=== PATIENT | male | born 1950 | race Caucasian/White ===

== ENCOUNTER 2017-10-10 13:27 | Emergency (ER) | payer OTHER ==
[2017-10-10 13:44] VITALS: BP 155/83; BMI 28.1
[2017-10-10] MEDS ORDERED: SOLU-Medrol 125 MG VIAL IVP ONE (15:58)
[2017-10-10] MEDS ORDERED: DUONEB 0.5 MG/3 MG NEB ONE (15:58)
--- NOTE | 2017-10-10 16:09 | DR.URIAD ---
HPI - Time Seen Time seen: 15:58 - PCP Primary Care Physician: JETHRO TAPIA - HPI Comment HPI Comment: Patient is complaining of feeling weak with cough, congestion but denies fever, chills. SOB, chest pain, nausea or vomiting. states he has been taking over the counter medicines without improvement. states he is a patient of Dr. Rodriguez and he is taking medicine for blood pressure. He denies dizziness , nasuea or any recent trauma. Denies swelling of hands or legs. - Complaint Chief Complaint:: PT C/O NOT FEELING WELL FOR A WEAK AND FELLING WEAK AND COUGHING UP THICK YELLOW SPUTUM,, PT DENIES FEVER , CHILLS,,,,AND SOB, Self Treatment fo Chief Complaint: OTC COLD. - Reviewed Nurses Notes Reviewed: Yes - Source History Provided: Patient, Family Member - Mode of Arrival Mode of Arrival: Ambulatory - Timing Onset of Chief Complaint: 10/01/17 - Context Recent Treated Infections: URI History of Respiratory: None - Quality Quality of Cough: Nonproductive Rhinorrhea: Clear Shortness of Breath: none - Associated Signs and Symptoms Other Signs and Symptoms: Cough, Wheeze PMH - PMH Past Medical History: Yes Past Medical History: Hypertension Past Medical History Comment: CHOLESTEROL. Past Surgical History: No - Family History History of Family Medical Conditions: No - Social History Does patient currently use any type of tobacco product: No Have you used tobacco products in the last 12 months: No Type of Tobacco Use: None Does any household member use tobacco: No Alcohol Use: None Do you use any recreational Drugs:: No Lives With: Family Lives Where: Home - infectious screening In the last 2 months have you had wt loss of >10#?: NO Have you had fever, night sweats or hemotysis?: No Have you traveled outside the country in the last 6 months?: No Isolation: Standard ROS - Review of Systems Constitutional: No Symptoms Reported, Weakness. negative: See HPI, Chills, Diaphoresis, Fever, Malaise, Irritable, Fatigue, Loss of Appetite, Other Eyes: No Symptoms Reported. negative: See HPI, Eye Pain, Blurred Vision, Tearing, Discharge, Photophobia, Diplopia, Other ENTM: No Symptoms Reported, Nose Discharge, Nose Congestion. negative: See HPI , Ear Pain, Ear Discharge, Pulling on Ears, Hearing Loss, Nose Pain, Epistaxis, Mouth Pain, Mouth Swelling, Loose Teeth, Drooling, Throat Pain, Throat Swelling , Ear Foreign Body Respiratoy: No Symptoms Reported, Dry Cough, Wheezing. negative: See HPI, Productive Cough, Non-Productive Cough, Moist Cough, Hacking Cough, Barking Cough, Brassy Cough, Orthopnea, Short of Breath, Stridor, Hemoptysis, Other Cardiovascular: No Symptoms Reported. negative: See HPI, Chest Pain, Edema, Palpitations, Syncope, Cyanosis, Skin Mottling, Other Gastrointestinal/Abdominal: No Symptoms Reported. negative: See HPI, Abdominal Pain, Constipation, Diarrhea, Nausea, Vomiting, Food Intolerance, Other Genitourinary: No Symptoms Reported. negative: See HPI, Discharge, Dysuria, Frequency, Hematuria, Pain, Bleeding, Other Neurological: No Symptoms Reported Musculoskeletal: No Symptoms Reported Integumentary: No Symptoms Reported Hematologic/Lymphatic: No Symptoms Reported. negative: See HPI, Anemia, Blood Clots, Easy Bleeding, Easy Bruising, Swollen Glands, Lymphadenopathy, Other Endocrine: No Symptoms Reported Psychiatric: No Symptoms Reported PE - Vital Signs Vitals: Temperature 98.2 F Pulse Rate 59 Respiratory Rate 18 Blood Pressure 155/83 O2 Sat by Pulse Oximetry 94 - General Limitations: No Limitations General Appearance: Alert, In No Apparent Distress - Head Head Exam: Normal Inspection, Atraumatic, Normocephalic - Eyes Eye exam: Normal Appearance, PERRL, EOMI. negative: Scleral Icterus, Conjunctival Injection, Nystagmus, Miosis, Mydrasis, Periorbital Swelling, Periorbital Tenderness, Other - ENT ENT Exam: Normal Exam, Normal Oropharynx, Normal External Ear Exam, Mucous Membranes Moist, TM's Normal Bilaterally External Ear Exam: Normal External Inspection TM/Canal Exam: Bilateral Normal Nose Exam: Normal Nose Exam (nasal congestion). negative: Sinus Tenderness, Nasal Deviation, Crepitus, Septal Hematoma, Laceration, Abrasion, Other Nasal Speculum Exam: Bilateral Normal Mouth Exam: Normal Inspection Throat Exam: Normal Inspection. negative: Tonsillar Erythema, Tonsillomegaly, Tonsillar Exudate, R Peritonsillar Mass, L Peritonsillar Mass, Muffled Voice, Other - Neck Neck Exam: Normal Inspection, Full ROM, Trachea Midline. negative: Tenderness, Meningismus, Lymphadenopathy, Thyromegaly, Other - Chest Chest Inspection: Normal Inspection, Symmetric Chest Wall Rise - Respiratory Respiratory Exam: Normal Lung Sounds Bilat Respiratory Exam: Bilateral Wheezing, Bilateral Decreased Breath Sounds - Cardiovascular Cardiovascular Exam: Regular Rate, Normal Rhythm, Normal Heart Sounds, Systolic Murmur - Abdominal Exam Abdominal Exam: Normal Inspection, Normal Bowel Sounds, Soft Abdominal Tenderness: negative: RUQ, RLQ, LUQ, LLQ, Epigastrium, Suprapubic, Diffuse, Mild, Moderate, Severe, Other - Extremeties Extremities Exam: Normal Inspection, Full ROM, Normal Capillary Refill. negative: Tenderness, Edema, Joint Swelling, Calf Tenderness, Other - Back Back Exam: Normal Inspection, Full ROM. negative: Tenderness, (R) CVA Tenderness, (L) CVA Tenderness, Muscle Spasm, Paraspinal Tenderness, Vertebral Tenderness, Rashes, (R) Sciatic Notch Tenderness, (L) Sciatic Notch Tendern, (R ) Straight Leg Raise, (L) Straight Leg Raise, Other - Neurologic Neurological Exam: Alert, Oriented X3, CN II-XII Intact, Normal Gait, Reflexes Normal - Psychiatric Psychiatric Exam: Normal Affect, Normal Mood. negative: Depressed, Agitated, Anxious, Flat Affect, Manic, Homicidal Ideation, Suicidal Ideation, Other - Skin Skin Exam: Warm, Dry, Intact, Normal Color. negative: Rash, Cyanosis, Diaphoresis, Erythema, Pallor, Mottled, Other ROR - Labs Reviewed Laboratory Results Reviewed?: Yes (all labs and x-ray results reviewed and discussed with patient and family) Result Diagrams: 10/10/17 16:05 10/10/17 16:05 Laboratory: WBC 4.2 X10^3/uL (3.6-10.0) 10/10/17 16:05 RBC 4.40 X10^6/uL (4.7-6.0) L 10/10/17 16:05 Hgb 13.5 g/dL (13.5-18.0) 10/10/17 16:05 Hct 39.6 % (42.0-54.0) L 10/10/17 16:05 MCV 89.9 fL (80.0-100.0) 10/10/17 16:05 MCH 30.7 pg (27.0-34.0) 10/10/17 16:05 MCHC 34.2 g/dL (33.0-35.0) 10/10/17 16:05 RDW 12.8 % (11.6-16.5) 10/10/17 16:05 Plt Count 163 X10^3/uL (150.0-450.0) 10/10/17 16:05 MPV 7.4 fL (7.4-11.0) 10/10/17 16:05 Neut % 43.6 % (42.0-75.0) 10/10/17 16:05 Lymph % 46.4 % (21.0-51.0) 10/10/17 16:05 [place] % 8.2 % (0.0-13.0) 10/10/17 16:05 Eos % 1.4 % (0.9-2.9) 10/10/17 16:05 Baso % 0.4 % (0.2-1.0) 10/10/17 16:05 Neut # 1.8 x10^3/uL (2.2-4.8) L 10/10/17 16:05 Lymph # 2.0 X10^3/uL (1.3-2.9) 10/10/17 16:05 [place] # 0.3 x10^3/uL (0.3-0.8) 10/10/17 16:05 Eos # 0.1 x10^3/uL (0.0-0.2) 10/10/17 16:05 Baso # 0.0 X10^3/uL (0.0-0.1) 10/10/17 16:05 Absolute Nucleated RBC 0.1 /100WBC 10/10/17 16:05 Sodium 139 mmol/L (136-145) 10/10/17 16:05 Corrected Sodium TNP 10/10/17 16:05 Potassium 3.7 mmol/L (3.5-5.1) 10/10/17 16:05 Chloride 105 mmol/L (98-107) 10/10/17 16:05 Carbon Dioxide 19.8 mmol/L (21-32) L 10/10/17 16:05 BUN 9 mg/dL (7-18) 10/10/17 16:05 Creatinine 0.74 mg/dL (0.70-1.30) 10/10/17 16:05 Est GFR (MDRD) Af Amer > 60 (>60) 10/10/17 16:05 Est GFR (MDRD) Non-Af > 60 (>60) 10/10/17 16:05 Glucose 77 mg/dL (65-99) 10/10/17 16:05 Calcium 8.9 mg/dL (8.5-10.1) 10/10/17 16:05 - XRAY XRAY Interpreted by: Radiologist (CXR: posterior lung base oopacity may represent pneumonia) - Diagnosis Discharge Problem: Acute asthmatic bronchitis, early pneumonia, Metabolic acidosis - Discharge Plan Disposition: 01 HOME, SELF-CARE Condition: Stable Prescriptions: Ipratropium-Albuterol [Combivent Respimat Inhaler] 2 puff IN Q6H #1 inh Levofloxacin [LEVAQUIN TAB 500 MG *] 500 mg PO Q24H #10 tab - Follow ups/Referrals Follow ups/Referrals: Yousif Rodriguez [Primary Care Provider] - 3 days - Instructions Instructions: Community-Acquired Pneumonia, Adult, [id number], Bronchospasm, Adult, Acute Bronchitis
[2017-10-10 16:14] LABS: BASOPHILS % (AUTO) 0.4 % (0.2-1.0); EOSINOPHILS # (AUTO) 0.1 x10^3/uL (0.0-0.2); EOSINOPHILS % (AUTO) 1.4 % (0.9-2.9); HEMATOCRIT 39.6 % (42.0-54.0); HEMOGLOBIN 13.5 g/dL (13.5-18.0); LYMPHOCYTES % (AUTO) 46.4 % (21.0-51.0); MEAN CORPUSCULAR HEMOGLOBIN 30.7 pg (27.0-34.0); MEAN CORPUSCULAR HGB CONC 34.2 g/dL (33.0-35.0); MEAN CORPUSCULAR VOLUME 89.9 fL (80.0-100.0); MEAN PLATELET VOLUME 7.4 fL (7.4-11.0); MONOCYTES # (AUTO) 0.3 x10^3/uL (0.3-0.8); MONOCYTES % (AUTO) 8.2 % (0.0-13.0); NEUTROPHILS # (AUTO) 1.8 x10^3/uL (2.2-4.8); NEUTROPHILS % (AUTO) 43.6 % (42.0-75.0); PLATELET COUNT 163 X10^3/uL (150.0-450.0); RED CELL DISTRIBUTION WIDTH 12.8 % (11.6-16.5); WHITE BLOOD COUNT 4.2 X10^3/uL (3.6-10.0)
[2017-10-10 16:22] LABS: BLOOD UREA NITROGEN 9 mg/dL (7-18); CALCIUM 8.9 mg/dL (8.5-10.1); CARBON DIOXIDE 19.8 mmol/L (21-32); CHLORIDE 105 mmol/L (98-107); CREATININE 0.74 mg/dL (0.70-1.30); SODIUM 139 mmol/L (136-145); eGFR BLACK RACES > 60 (>60); eGFR NON BLACK RACES > 60 (>60)
[2017-10-10] MEDS ORDERED: DUONEB 0.5 MG/3 MG ONE (16:26)
--- NOTE | 2017-10-10 17:29 | RAD ---
HISTORY: Not feeling well, weakness, coughing, fever, chills Study: PA and lateral views of the chest Comparison: None Findings: Posterior/basilar densities seen on the lateral view only. No effusion or pneumothorax identified. Th e cardiac and mediastinal contours are within normal limits. The soft tissues are unremarkable. IMPRESSION: 1. Posterior lung base opacity, only seen on the lateral view, may represent pneumonia. Consider CT f or further evaluation. Reported By:
[2017-10-10] MEDS ORDERED: ROCEPHIN VIAL 1 GM IM ONE (17:56)
[2017-10-10] MEDS ORDERED: LEVAQUIN TAB 500 MG PO STA (17:56)
[2017-10-10] MEDS ORDERED: XYLOCAINE 1 % (PLAIN) ONE (17:58)
[2017-10-10] MEDS ORDERED: LEVAQUIN TAB 500 MG ONE (17:59)
[2017-10-10] MEDS ORDERED: ROCEPHIN VIAL 1 GM ONE (17:59)
== END 2017-10-10 18:14 | disposition home or self-care (01) ==
LOC: ER 13:44
DX: J45.901 Unspecified asthma with (acute) exacerbation (principal); J18.9 Pneumonia, unspecified organism; E87.2 Acidosis
CPT/HCPCS: 36415; 71020; 80048; 85025; 94640; 96372; 99282; J0696; J2001; J7620

== ENCOUNTER 2022-11-10 16:32 | Observation (INO) ==
--- NOTE | 2022-11-10 16:48 | DR.SOBA ---
HPI Time Seen Time Seen by Provider: 11/10/22 16:48 PMH PMH Past Medical History: Dyslipidemia, Hypertension and Hypothyroidism Past Surgical History: No Social History Do you use any recreational Drugs:: No PE Vital Signs Vitals: Temperature 99.3 F Pulse Rate 123 Respiratory Rate 8 Blood Pressure [Left Arm] 164/84 Blood Pressure 174/82 O2 Sat by Pulse Oximetry 94 ROR Labs Reviewed Result Diagrams: 11/10/22 17:20 11/10/22 17:20 Laboratory: WBC 7.3 X10^3/uL (3.6-10.0) 11/10/22 17:20 RBC 3.78 X10^6/uL (4.7-6.0) L 11/10/22 17:20 Hgb 11.3 g/dL (13.5-18.0) L 11/10/22 17:20 Hct 33.8 % (42.0-54.0) L 11/10/22 17:20 MCV 89.5 fL (80.0-100.0) 11/10/22 17:20 MCH 29.9 pg (27.0-34.0) 11/10/22 17:20 MCHC 33.4 g/dL (33.0-35.0) 11/10/22 17:20 RDW 13.5 % (11.6-16.5) 11/10/22 17:20 Plt Count 154 X10^3/uL (150.0-450.0) 11/10/22 17:20 MPV 9.1 fL (7.4-11.0) 11/10/22 17:20 Neut % (Auto) 88.7 % (42.0-75.0) H 11/10/22 17:20 Lymph % (Auto) 6.5 % (21.0-51.0) L 11/10/22 17:20 [place] % (Auto) 4.7 % (0.0-13.0) 11/10/22 17:20 Eos % (Auto) 0.0 % (0.9-2.9) L 11/10/22 17:20 Baso % (Auto) 0.1 % (0.2-1.0) L 11/10/22 17:20 Neut # (Auto) 6.5 x10^3/uL (2.2-4.8) H 11/10/22 17:20 Lymph # (Auto) 0.5 X10^3/uL (1.3-2.9) L 11/10/22 17:20 [place] # (Auto) 0.3 x10^3/uL (0.3-0.8) 11/10/22 17:20 Eos # (Auto) 0.0 x10^3/uL (0.0-0.2) 11/10/22 17:20 Baso # (Auto) 0.0 X10^3/uL (0.0-0.1) 11/10/22 17:20 Absolute Nucleated RBC 0.0 /100WBC 11/10/22 17:20 Sodium 144 mmol/L (136-145) 11/10/22 17:20 Corrected Sodium 145 mmol/L (136-145) 11/10/22 17:20 Potassium 3.1 mmol/L (3.5-5.1) L 11/10/22 17:20 Chloride 104 mmol/L (98-107) 11/10/22 17:20 Carbon Dioxide 28.9 mmol/L (21-32) 11/10/22 17:20 BUN 30 mg/dL (7-18) H 11/10/22 17:20 Creatinine 1.39 mg/dL (0.70-1.30) H 11/10/22 17:20 Est GFR (MDRD) Af Amer > 60 (>60) 11/10/22 17:20 Est GFR (MDRD) Non-Af 53 (>60) L 11/10/22 17:20 Glucose 150 mg/dL (65-99) H 11/10/22 17:20 Calcium 9.2 mg/dL (8.5-10.1) 11/10/22 17:20 Corrected Calcium 10.3 mg/dL (8.5-10.1) H 11/10/22 17:20 Total Bilirubin 0.70 mg/dL (0.2-1.0) 11/10/22 17:20 AST 24 Units/L (15-37) 11/10/22 17:20 ALT 18 Units/L (12-78) 11/10/22 17:20 Alkaline Phosphatase 52 Units/L (46-116) 11/10/22 17:20 Creatine Kinase 68 Units/L (39-308) 11/10/22 17:20 Troponin I High Sens 51.2 ng/L (4.0-60.0) 11/10/22 17:20 B-Natriuretic Peptide 856 pg/mL (0-79) H* 11/10/22 17:20 Total Protein 7.1 g/dL (6.4-8.2) 11/10/22 17:20 Albumin 2.6 g/dL (3.4-5.0) L 11/10/22 17:20 Globulin 4.5 g/dL (2.5-4.5) 11/10/22 17:20 Albumin/Globulin Ratio 0.6 Ratio (1.1-2.1) L 11/10/22 17:20 Specimen Type Catherized urine 11/10/22 17:40 Urine Color Yellow (YELLOW) 11/10/22 17:40 Urine Appearance Clear (CLEAR) 11/10/22 17:40 Urine pH 6.0 (5.0 - 8.0) 11/10/22 17:40 Ur Specific Echo 1.020 (1.000-1.030) 11/10/22 17:40 Urine Protein Negative (NEGATIVE) 11/10/22 17:40 Urine Glucose (UA) Negative (NEGATIVE) 11/10/22 17:40 Urine Ketones Negative (NEGATIVE) 11/10/22 17:40 Urine Blood 2+ (NEGATIVE) 11/10/22 17:40 Urine Nitrite Negative (NEGATIVE) 11/10/22 17:40 Urine Bilirubin Negative (NEGATIVE) 11/10/22 17:40 Urine Urobilinogen Normal (NORMAL) 11/10/22 17:40 Ur Leukocyte Esterase Negative (NEGATIVE) 11/10/22 17:40 Urine RBC 3-5 /HPF (0-3) A 11/10/22 17:40 Urine WBC 0-2 /HPF (0-5) 11/10/22 17:40 Ur Squamous Epith Cells Negative /HPF (NEGATIVE) 11/10/22 17:40 Urine Bacteria Negative /HPF (NEGATIVE) 11/10/22 17:40 Ur Culture Indicated? No/not indicated 11/10/22 17:40 SARS-CoV-2 (PCR) Negative (NEGATIVE) 11/10/22 17:09 Influenza Type A (PCR) Positive (NEGATIVE) A 11/10/22 17:09 Influenza Type B (PCR) Negative (NEGATIVE) 11/10/22 17:09 RSV (PCR) Negative (NEGATIVE) 11/10/22 17:09 Opioid Opioid Risk Tool Total: 0 Total Score Risk Category: Low Risk Copyright: [employer] predicting aberrant behaviors Discharge Plan Discharge Plan Patient Disposition: HOME, SELF-CARE Condition: Stable Prescriptions: No Action atorvastatin 10 mg tablet 40 mg PO HS levothyroxine 75 mcg tablet 88 mcg PO DAILY metoprolol tartrate 100 mg tablet 1 tab PO BID amlodipine 10 mg tablet 1 tab PO QDAY bumetanide 1 mg tablet 1 tab PO QDAY losartan 100 mg tablet 1 tab PO QDAY spironolactone 50 mg tablet 1 tab PO QDAY Eliquis 5 mg Tablet 5 mg PO DAILY Health Concerns: Post Hospitalization: new medications and changes needed to prevent readmission or further decline. Pt educated and given instructions on all concerns. Plan of Treatment: Continue with present treatment and follow up plan. Pt is to keep follow up a ppointment as instructed and take medications as ordered. Orders to Discharge Patient Discharge Orders: Transfer (Routine); Ordered 11/10/22 Ordered By: NAMRATA BARRAGAN Follow ups/Referrals Follow ups/Referrals: Yousif Rodriguez [Primary Care Provider] - 3 days
--- NOTE | 2022-11-10 16:55 | EKG ---
Test Reason : short of breath Blood Pressure : */* mmHG Vent. Rate : 115 BPM Atrial Rate : * BPM P-R Int : * ms QRS Dur : 88 ms QT Int : 364 ms P-R-T Axes : * -4 122 degrees QTc Int : 503 ms Atrial fibrillation with rapid ventricular response Abnormal ECG No previous ECGs available Confirmed by Dick Daniel ([id number]) on 11/11/2022 10:28:02 AM Referred By: Confirmed By: Dick Daniel
[2022-11-10 17:02] VITALS: BMI 29.5
[2022-11-10 17:50] LABS: BASOPHILS % (AUTO) 0.1 % (0.2-1.0); HEMATOCRIT 33.8 % (42.0-54.0); HEMOGLOBIN 11.3 g/dL (13.5-18.0); LYMPHOCYTES # (AUTO) 0.5 X10^3/uL (1.3-2.9); LYMPHOCYTES % (AUTO) 6.5 % (21.0-51.0); MEAN CORPUSCULAR HEMOGLOBIN 29.9 pg (27.0-34.0); MEAN CORPUSCULAR HGB CONC 33.4 g/dL (33.0-35.0); MEAN CORPUSCULAR VOLUME 89.5 fL (80.0-100.0); MEAN PLATELET VOLUME 9.1 fL (7.4-11.0); MONOCYTES # (AUTO) 0.3 x10^3/uL (0.3-0.8); MONOCYTES % (AUTO) 4.7 % (0.0-13.0); NEUTROPHILS # (AUTO) 6.5 x10^3/uL (2.2-4.8); NEUTROPHILS % (AUTO) 88.7 % (42.0-75.0); RED BLOOD COUNT 3.78 X10^6/uL (4.7-6.0); RED CELL DISTRIBUTION WIDTH 13.5 % (11.6-16.5); WHITE BLOOD COUNT 7.3 X10^3/uL (3.6-10.0)
[2022-11-10 17:50] LABS: BILIRUBIN,URINE NEGATIVE (NEGATIVE); BLOOD/HEMOGLOBIN,URINE 2+ (NEGATIVE); GLUCOSE, URINE NEGATIVE (NEGATIVE); KETONES,URINE NEGATIVE (NEGATIVE); LEUKOCYTE ESTERASE ,URINE NEGATIVE (NEGATIVE); NITRITES,URINE NEGATIVE (NEGATIVE); PROTEIN,URINE NEGATIVE (NEGATIVE); UROBILINOGEN,URINE NORMAL (NORMAL)
--- NOTE | 2022-11-10 17:53 | RAD ---
CHEST, 1 VIEWHISTORY:Difficulty breathingStudy: Single view of the chest.Comparison:NoneFindings:Cardiomegaly and pulmonary vascular congestion. No focal consolidations, pleural effusions or pneumothorax. Osseous structures demonstrate no acute abnormality.IMPRESSION:1.Cardiomegaly and pulmonary vascular congestion.Electronically signed by: MANNY MANDEL (Nov 10, 2022 17:51:34)
[2022-11-10 17:55] LABS: APPEARANCE,URINE CLEAR (CLEAR); COLOR,URINE YELLOW (YELLOW)
[2022-11-10 17:58] LABS: SQUAMOUS EPITHELIAL CELL,UR NEGATIVE /HPF (NEGATIVE)
[2022-11-10 17:59] LABS: BACTERIA,URINE NEGATIVE /HPF (NEGATIVE)
[2022-11-10 18:08] LABS: ALANINE AMINOTRANSFERASE 18 Units/L (12-78); ALBUMIN 2.6 g/dL (3.4-5.0); ALKALINE PHOSPHATASE 52 Units/L (46-116); ASPARTATE AMINO TRANSFERASE 24 Units/L (15-37); BLOOD UREA NITROGEN 30 mg/dL (7-18); CALCIUM 9.2 mg/dL (8.5-10.1); CARBON DIOXIDE 28.9 mmol/L (21-32); CHLORIDE 104 mmol/L (98-107); COR CA(FOR HYPOALB) 10.3 mg/dL (8.5-10.1); COR NA(FOR HYPERGLY) 145 mmol/L (136-145); CREATINE KINASE 68 Units/L (39-308); CREATININE 1.39 mg/dL (0.70-1.30); SODIUM 144 mmol/L (136-145); TOTAL PROTEIN 7.1 g/dL (6.4-8.2); eGFR NON BLACK RACES 53 (>60)
[2022-11-10] MEDS ORDERED: KLOR-CON PO ONE (18:30)
[2022-11-10] MEDS ORDERED: KLOR-CON ONE (18:34)
[2022-11-10] MEDS ORDERED: NS 100 ML IV 100 ML ONE (20:51)
[2022-11-10] MEDS ORDERED: TAMIFLU PO ONE (21:00)
[2022-11-10] MEDS: ROCEPHIN VIAL 1 GRAM 1 G in NS 100 ML IV 100 ML IV SCH (21:08)
[2022-11-11 06:03] LABS: BASOPHILS % (AUTO) 0.1 % (0.2-1.0); HEMATOCRIT 30.6 % (42.0-54.0); HEMOGLOBIN 10.5 g/dL (13.5-18.0); LYMPHOCYTES # (AUTO) 0.7 X10^3/uL (1.3-2.9); LYMPHOCYTES % (AUTO) 9.9 % (21.0-51.0); MEAN CORPUSCULAR HEMOGLOBIN 30.3 pg (27.0-34.0); MEAN CORPUSCULAR HGB CONC 34.3 g/dL (33.0-35.0); MEAN CORPUSCULAR VOLUME 88.3 fL (80.0-100.0); MEAN PLATELET VOLUME 8.9 fL (7.4-11.0); MONOCYTES # (AUTO) 0.4 x10^3/uL (0.3-0.8); MONOCYTES % (AUTO) 5.3 % (0.0-13.0); NEUTROPHILS # (AUTO) 6.3 x10^3/uL (2.2-4.8); NEUTROPHILS % (AUTO) 84.7 % (42.0-75.0); RED BLOOD COUNT 3.46 X10^6/uL (4.7-6.0); RED CELL DISTRIBUTION WIDTH 13.5 % (11.6-16.5); WHITE BLOOD COUNT 7.4 X10^3/uL (3.6-10.0)
[2022-11-11 06:07] LABS: ALANINE AMINOTRANSFERASE 13 Units/L (12-78); ALBUMIN 2.3 g/dL (3.4-5.0); ALKALINE PHOSPHATASE 48 Units/L (46-116); ASPARTATE AMINO TRANSFERASE 19 Units/L (15-37); BLOOD UREA NITROGEN 28 mg/dL (7-18); CALCIUM 8.7 mg/dL (8.5-10.1); CARBON DIOXIDE 27.1 mmol/L (21-32); CHLORIDE 105 mmol/L (98-107); COR CA(FOR HYPOALB) 10.1 mg/dL (8.5-10.1); COR NA(FOR HYPERGLY) 143 mmol/L (136-145); CREATININE 1.19 mg/dL (0.70-1.30); MAGNESIUM 1.1 mg/dL (2.0-2.9); SODIUM 142 mmol/L (136-145); TOTAL PROTEIN 6.7 g/dL (6.4-8.2); eGFR NON BLACK RACES > 60 (>60)
[2022-11-11] MEDS ORDERED: KLOR-CON PO PRN (06:28)
[2022-11-11] MEDS ORDERED: POTASSIUM CHLORIDE LIQ 20 MEQ UDC PO PRN (06:28)
[2022-11-11] MEDS ORDERED: K-RIDER 10 MEQ/NS 100 ML 10 MEQ/100 ML BAG IV PRN (06:28)
[2022-11-11] MEDS ORDERED: POTASSIUM CHL 60 MEQ/NS 0.45% 500 ML IV PRN (06:28)
[2022-11-11] MEDS ORDERED: MICRO K EXTEN CAP 10 MEQ PO PRN (06:28)
[2022-11-11] MEDS ORDERED: POTASSIUM CHL 40 MEQ/NS 0.45% 500 ML IV PRN (06:28)
[2022-11-11] MEDS: K-DUR TAB 20 MEQ PO PRN ×2 (07:09→17:31)
[2022-11-11] MEDS: MAGNESIUM SULFATE 1 GRAM/100 mL PREMIX 1 G/100 ML BAG IV PRN ×6 (07:09→12:56)
--- NOTE | 2022-11-11 07:35 | RAD ---
HISTORYFlu, shortness of breathSTUDYChest AP [id number]/02/2023FINDINGSThe heart is enlarged. The alec are normal. Aorta is calcified. No congestive heart failure is noted. No acute alveolar infiltrates or pleural effusions are identified. Bony thorax is unremarkable.IMPRESSIONCardiomegaly without congestive heartNo definite infiltratesElectronically signed by: YONG PRUITT (Nov 11, 2022 07:34:15)
[2022-11-11] MEDS ORDERED: TAMIFLU PO SCH (09:00)
[2022-11-11] MEDS: TAMIFLU PO SCH ×2 (10:04→21:22)
[2022-11-11] MEDS: ELIQUIS PO SCH ×2 (10:30→21:22)
[2022-11-11] MEDS ORDERED: BUTT CREAM (COMPOUND) ONE (11:05)
[2022-11-11] MEDS ORDERED: BUTT CREAM (COMPOUND) TOP PRN (11:10)
[2022-11-11] MEDS: LASIX IVP SCH (11:12)
--- NOTE | 2022-11-11 16:03 | DR.H&P ---
H&P - History & Physical for Day of: H&P Date: 11/10/22 - Chief Complaint Chief Complaint: SHORTNESS OF BREATH, WHEEZING, WEAKNESS - History of Present Illness History of Present Illness: IS A 71 YEAR OLD PATIENT OF OURS. HE PRESENTED TO THE ER WITH COMPLAINTS OF SHORTNESS OF BREATH AND WHEEZING X 5 DAYS. PATIENTS DAUGHTER REPORTS THAT PATIENT FELL AT HOME ON THURSDAY AND NOW HAS A LARGE BRUISE ON HIS RIGHT SIDE. SHE REPORTS THAT HE HAS ALSO HAD FEVER AND DIARRHEA. HE DENIES NAUSEA OR VOMITING. HIS PMH INCLUDES: CVA, DYSLIPIDEMIA, HTN, HYPOTHYROIDISM, A-FIB, HERNIA, AND HIGH CHOLESTEROL. ON ARRIVAL TO THE ER, VITALS WERE: 99.3-124-35-93%-141/86. HE WAS PLACED ON OXYGEN VIA NASAL CANNULA AT 2 LPM. LABS WERE OBTAINED. WBC 7.3, RBC 3.78, HGB 11.3, HCT 33.8, PLT COUNT 154, SODIUM 144, POTASSIUM 3.1, CHLORIDE 104, BUN 30, CREATININE 1.39, GLUCOSE 150, CALCIUM 9.2, TOTAL BILI 0.70, AST 24, ALT 18, ALK PHOS 52, CREATINE KINASE 68, BNP 856, TOTAL PROTEIN 7.1, ALBUMIN 2.6, TROPONIN 51.2. URINALYSIS WAS UNREMARKABLE WITH THE EXCEPTION OF 2+ BLOOD. SHE IS POSITIVE FOR INFLUENZA A. COVID AND RSV NEGATIVE. BLOOD CULTURES WERE SET UP. A CHEST XRAY WAS OBTAINED AND REVEALED: 1.Cardiomegaly and pulmonary vascular congestion. EKG REVEALED ATRIAL FIBRILLATION WITH HR 115. IN THE ER, HE WAS GIVEN KLOR-CON 20MEQ PO X 1 AND TAMIFLU 75MG PO X 1. HE WAS ADMITTED TO THE HOSPITAL OBSERVATION STATUS FOR FURTHER EVALUATION AND TREATMENT OF CHF, INFLUENZA A, ATRIAL FIBRILLATION, AND GENERALIZED WEAKNESS. HE WAS STARTED ON LASIX 20MG IV DAILY, ROCEPHIN 1G IV DAILY, TAMIFLU 75MG PO BID, AND THE POTASSIUM AND MAGNESIUM PROTOCOLS. WE WILL RESUME HIS ELIQUIS. OTHERWISE, WE WILL FOLLOW-UP WITH AM LABS AND CONTINUE TO MONITOR. TIME SPENT ON CLINICAL ASSESSMENT, REVIEWING LABS AND IMAGING, DECISION MAKING, AND DOCUMENTATION GREATER THAN 75 MINUTES. - Past Medical History Past Medical History: CVA, Dyslipidemia, Hypertension, Hypothyroidism Additional Medical History: A-FIB, HERNIA, HIGH CHOLESTEROL - Past Surgical History Surgical History: Tonsillectomy - Family History Family Medical History: Diabetes Mellitus, Cancer, Heart Failure, Sudden Cardiac , Hypertension - Social History Does patient currently use any type of tobacco product: Yes Have you used tobacco products in the last 12 months: Yes Type of Tobacco Use: Smokeless Does any household member use tobacco: No Alcohol Use: Occasionally Drug Use: None - Medications Home Medications: No Known Drug Allergies Allergy (Verified 10/10/17 13:35) CONTINUE taking the following medications amlodipine 10 mg tablet 1 tab PO QDAY 11/10/22 [History] apixaban 5 mg tablet (Eliquis) 5 mg PO BID 11/10/22 [History] bumetanide 1 mg tablet 1 tab PO QDAY 11/10/22 [History] losartan 100 mg tablet 1 tab PO QDAY 11/10/22 [History] metoprolol tartrate 100 mg tablet 1 tab PO BID 11/10/22 [History] spironolactone 50 mg tablet 1 tab PO QDAY 11/10/22 [History] - Review of Systems Constitutional: Fever, Chills, Weakness Eyes: No Symptoms Reported ENT: No Symptoms Reported Respiratory: Cough, Shortness of Breath, SOB with Excertion, Wheezing Cardiovascular: See HPI Gastrointestinal: Diarrhea Genitourinary: No Symptoms Reported Musculoskeletal: No Symptoms Reported Skin: No Symptoms Reported Neurological: Weakness - Physical Exam Vital Signs: Temperature 97.6 F Pulse Rate [Right Brachial] 114 Pulse Rate [Left Radial] 105 Pulse Rate 126 Respiratory Rate 20 Blood Pressure [Right Arm] 112/56 Blood Pressure [Left Arm] 119/71 Blood Pressure 142/74 O2 Sat by Pulse Oximetry 97 Oriented: Normal Eyes: Normal Ear: Normal Nose: Normal Throat: Normal Respiratory: Wheezes Throughout Cardiovascular: Tachycardia, Irregular : Normal Auscultation: Bowel Sounds: Normal Palpation: Normal Tenderness: Normal Skin: Normal Musculoskeletal: Normal Psychiatric: Normal Mood Description: Calm Affect: Normal Speech Pattern: Clear - Assessment/Plan (1) CHF (congestive heart failure) Qualifiers: Heart failure type: unspecified Heart failure chronicity: acute on chronic Qualified Code(s): I50.9 - Heart failure, unspecified Status: Acute Plan: ADMIT, SUPPLEMENTAL OXYGEN, LASIX 20MG IV DAILY, ROCEPHIN 1G IV DAILY, TAMIFLU 75MG PO BID, AND THE POTASSIUM AND MAGNESIUM PROTOCOLS, ELIQUIS 5MG BID (2) Influenza A Status: Acute (3) Atrial fibrillation Qualifiers: Atrial fibrillation type: unspecified Qualified Code(s): I48.91 - Unspecified atrial fibrillation Status: Acute (4) Generalized weakness Status: Acute - Allergies Allergies/Adverse Reactions: Allergies Allergy/AdvReac Type Severity Reaction Status Date / Time No Known Drug Allergies Allergy Verified 10/10/17 13:35
[2022-11-11] MEDS: ROCEPHIN VIAL 1 GRAM 1 G in NS 100 ML IV 100 ML IV SCH (21:20)
[2022-11-12 05:26] LABS: BASOPHILS % (AUTO) 0.2 % (0.2-1.0); EOSINOPHILS % (AUTO) 0.6 % (0.9-2.9); HEMATOCRIT 28.9 % (42.0-54.0); HEMOGLOBIN 9.9 g/dL (13.5-18.0); LYMPHOCYTES % (AUTO) 21.5 % (21.0-51.0); MEAN CORPUSCULAR HEMOGLOBIN 30.1 pg (27.0-34.0); MEAN CORPUSCULAR HGB CONC 34.3 g/dL (33.0-35.0); MEAN CORPUSCULAR VOLUME 87.7 fL (80.0-100.0); MONOCYTES # (AUTO) 0.4 x10^3/uL (0.3-0.8); NEUTROPHILS # (AUTO) 3.1 x10^3/uL (2.2-4.8); NEUTROPHILS % (AUTO) 69.7 % (42.0-75.0); RED CELL DISTRIBUTION WIDTH 13.8 % (11.6-16.5); WHITE BLOOD COUNT 4.5 X10^3/uL (3.6-10.0)
[2022-11-12 05:31] LABS: MAGNESIUM 1.8 mg/dL (2.0-2.9)
[2022-11-12] MEDS: MAGNESIUM SULFATE 1 GRAM/100 mL PREMIX 1 G/100 ML BAG IV PRN ×2 (06:12→07:30)
[2022-11-12] MEDS ORDERED: NS 100 ML IV 100 ML ONE (06:12)
[2022-11-12] MEDS: K-DUR TAB 20 MEQ PO PRN (06:13)
--- NOTE | 2022-11-12 07:47 | RAD ---
HISTORYShortness of breathSTUDYChest AP [id number]/03/2023FINDINGSHear t is enlarged. No congestive heart failure is noted. Aorta is calcified. Lungs are free of acute infiltrates. No pleural effusions are identified. Bony thorax is unremarkable.IMPRESSIONNo change cardiomegaly without congestive heart failureNo definite infiltratesElectronically signed by: YONG PRUITT (Nov 12, 2022 07:46:01)
[2022-11-12] MEDS: TAMIFLU PO SCH ×2 (08:45→20:50)
[2022-11-12] MEDS: ELIQUIS PO SCH ×2 (08:45→20:50)
[2022-11-12 09:09] LABS: ALANINE AMINOTRANSFERASE 12 Units/L (12-78); ALBUMIN 2.1 g/dL (3.4-5.0); ALKALINE PHOSPHATASE 48 Units/L (46-116); ASPARTATE AMINO TRANSFERASE 18 Units/L (15-37); BLOOD UREA NITROGEN 27 mg/dL (7-18); CALCIUM 8.2 mg/dL (8.5-10.1); CARBON DIOXIDE 25.3 mmol/L (21-32); CHLORIDE 101 mmol/L (98-107); COR CA(FOR HYPOALB) 9.7 mg/dL (8.5-10.1); COR NA(FOR HYPERGLY) 137 mmol/L (136-145); CREATININE 1.03 mg/dL (0.70-1.30); SODIUM 136 mmol/L (136-145); TOTAL PROTEIN 6.3 g/dL (6.4-8.2); eGFR NON BLACK RACES > 60 (>60)
[2022-11-12] MEDS: LASIX IVP SCH (10:57)
[2022-11-12] MEDS: LOPRESSOR TAB 25 MG PO SCH ×2 (11:31→20:50)
[2022-11-12] MEDS: ALDACTONE TAB 25 MG PO SCH (11:31)
[2022-11-12] MEDS: SYNTHROID 88 mcg TAB PO SCH (11:32)
[2022-11-12] MEDS: ROCEPHIN VIAL 1 GRAM 1 G in NS 100 ML IV 100 ML IV SCH (20:50)
[2022-11-12] MEDS ORDERED: LIPITOR TAB 10 MG PO SCH (21:00)
[2022-11-13 06:20] LABS: BASOPHILS % (AUTO) 0.3 % (0.2-1.0); HEMATOCRIT 31.7 % (42.0-54.0); HEMOGLOBIN 10.8 g/dL (13.5-18.0); LYMPHOCYTES % (AUTO) 21.9 % (21.0-51.0); MEAN CORPUSCULAR HEMOGLOBIN 30.1 pg (27.0-34.0); MEAN CORPUSCULAR HGB CONC 34.1 g/dL (33.0-35.0); MEAN CORPUSCULAR VOLUME 88.4 fL (80.0-100.0); MONOCYTES # (AUTO) 0.4 x10^3/uL (0.3-0.8); MONOCYTES % (AUTO) 7.9 % (0.0-13.0); NEUTROPHILS # (AUTO) 3.2 x10^3/uL (2.2-4.8); NEUTROPHILS % (AUTO) 68.9 % (42.0-75.0); RED BLOOD COUNT 3.58 X10^6/uL (4.7-6.0); RED CELL DISTRIBUTION WIDTH 13.5 % (11.6-16.5); WHITE BLOOD COUNT 4.7 X10^3/uL (3.6-10.0)
--- NOTE | 2022-11-13 06:24 | RAD ---
HISTORYShortness of breathSTUDYChest AP [id number]/04/2023FINDINGSHear t is upper limits normal in size. The alec are normal. Aorta is calcified. Lungs are well inflated and free of acute infiltrates. No pleural effusions are identified. Bony thorax is unremarkable.IMPRESSIONNo significant abnormality identifiedElectronically signed by: YONG PRUITT (Nov 13, 2022 06:23:42)
[2022-11-13 06:41] LABS: ALANINE AMINOTRANSFERASE 17 Units/L (12-78); ALBUMIN 2.2 g/dL (3.4-5.0); ALKALINE PHOSPHATASE 52 Units/L (46-116); ASPARTATE AMINO TRANSFERASE 20 Units/L (15-37); BLOOD UREA NITROGEN 18 mg/dL (7-18); CALCIUM 8.7 mg/dL (8.5-10.1); CARBON DIOXIDE 27.1 mmol/L (21-32); CHLORIDE 101 mmol/L (98-107); COR CA(FOR HYPOALB) 10.1 mg/dL (8.5-10.1); COR NA(FOR HYPERGLY) 137 mmol/L (136-145); CREATININE 0.89 mg/dL (0.70-1.30); MAGNESIUM 1.4 mg/dL (2.0-2.9); SODIUM 136 mmol/L (136-145); TOTAL PROTEIN 6.7 g/dL (6.4-8.2); eGFR NON BLACK RACES > 60 (>60)
[2022-11-13] MEDS: TAMIFLU PO SCH (08:38)
[2022-11-13] MEDS: SYNTHROID 88 mcg TAB PO SCH (08:38)
[2022-11-13] MEDS: LOPRESSOR TAB 25 MG PO SCH (08:38)
[2022-11-13] MEDS: ELIQUIS PO SCH (08:38)
[2022-11-13] MEDS: ALDACTONE TAB 25 MG PO SCH (08:38)
[2022-11-13] MEDS: MAGNESIUM SULFATE 1 GRAM/100 mL PREMIX 1 G/100 ML BAG IV PRN (08:43)
[2022-11-13] MEDS ORDERED: BUMEX TAB 1 MG PO SCH (09:00)
[2022-11-13] MEDS ORDERED: MAGNESIUM SULFATE IV NR ×2 (11:00)
[2022-11-13] MEDS ORDERED: D5W IV NR ×2 (11:00)
--- NOTE | 2022-11-13 11:29 | PCM.PROG ---
Progress Note - Progress Note for Day of Date of Exam: 11/12/22 - Subjective Subjective: IS CURRENTLY OBSERVATION STATUS FOR TREATMENT OF CHF, INFLUENZA A, ATRIAL FIBRILLATION, AND GENERALIZED WEAKNESS. TODAY, HE IS ALERT AND ORIENTED, LYING IN BED ON MORNING ROUNDS. HE CONTINUES TO COMPLAIN OF SHORTNESS OF BREATH AND COUGH, BUT DOES REPORT SLIGHT IMPROVEMENT TODAY. HE DENIES DIARRHEA, NAUSEA, OR VOMITING. WE HELD HIS LASIX YESTERDAY DUE TO HYPOTENSION. HE HAS BEEN AFEBRILE THROUGHOUT THE NIGHT. ON EXAMINATION, A-FIB NOTED WITH REGULAR RHYTHM THIS MORNING. BILATERAL LUNGS NOTED WITH DIMINISHED LUNG SOUNDS THROUGHOUT THE NIGHT. ABDOMEN IS ROUND, SOFT, AND NON-TENDER WITH NORMAL BOWEL SOUNDS NOTED IN ALL QUADRANTS. TRACE LOWER EXTREMITY EDEMA NOTED. HIS VITALS THIS MORNING ARE: 97.8-101-32-98%-104/63. LABS WERE OBTAINED. WBC 4.5, RBC 3.30, HGB 9.9, HCT 28.9, SODIUM 136, POTASSIUM 3.5, CHLORIDE 101, CARBON DIOXIDE 25.3, BUN 27, CREATININE 1.03, GLUCOSE 122, CALCIUM 8.2, MAGNESIUM 1.8, AST 18, ALT 12, ALK PHOS 48, BNP 447, TOTAL PROTEIN 6.3, ALBUMIN 2.1. BLOOD CULTURES ARE PENDING. A CHEST XRAY WAS OBTAINED AND REVEALED: Heart is enlarged. No congestive heart failure is noted. Aorta is calcified. Lungs are free of acute infiltrates. No pleural effusions are identified. Bony thorax is unremarkable. HE IS CURRENTLY RECEIVING ROCEPHIN 1G IV DAILY, TAMIFLU 75MG PO BID, AND THE POTASSIUM AND MAGNESIUM PROTOCOLS. WE WILL START METOPROLOL 25MG PO BID AND RESUME HIS ALDACTONE TODAY. OTHERWISE, WE WILL FOLLOW-UP WITH AM LABS AND CHEST XRAY AND CONTINUE TO MONITOR. TIME SPENT ON CLINICAL ASSESSMENT, REVIWING LABS AND IMAGING, DECISION MAKING, AND DOCUMENTATION GREATER THAN 45 MINUTES. - Past Medical Family Social History Past Med/Fam/Surg Hx: No changes since H&P Allergies: Allergies No Known Drug Allergies Allergy (Verified 10/10/17 13:35) - Review of Systems ROS: No change since H&P - Vital Signs and I&O's Vital Signs: Temperature 98.4 F Pulse Rate [Left Brachial] 90 Pulse Rate [Right Brachial] 89 Pulse Rate [Left Radial] 105 Pulse Rate 126 Respiratory Rate 20 Blood Pressure [Right Arm] 130/73 Blood Pressure [Left Arm] 136/67 Blood Pressure 142/74 O2 Sat by Pulse Oximetry 96 Intake and Output: Intake & Output 11/10/22 11/11/22 11/12/22 11/13/22 11:59 11:59 11:59 11:59 Intake Total 345 / 345 1493 / 1493 1745 / 1745 Output Total 500 / 500 1160 / 1160 1560 / 1560 Balance -155 / -155 333 / 333 185 / 185 - Physical Exam Oriented: Normal Eyes: Normal Ear: Normal Nose: Normal Throat: Normal Respiratory: Generalized, Diminished Cardiovascular: Normal, Irregular : Normal Auscultation: Bowel Sounds: Normal Palpation: Normal Tenderness: Normal Skin: Normal Musculoskeletal: Normal Psychiatric: Normal Mood Description: Calm Affect: Normal Speech Pattern: Clear, Appropriate - Laboratory and Diagnostics Result Diagrams: 11/13/22 05:35 11/13/22 05:35 Labs: 11/10/22 17:29 Blood Blood Culture - Preliminary 11/10/22 17:20 Blood Blood Culture - Preliminary Laboratory WBC 4.7 X10^3/uL (3.6-10.0) 11/13/22 05:35 RBC 3.58 X10^6/uL (4.7-6.0) L 11/13/22 05:35 Hgb 10.8 g/dL (13.5-18.0) L 11/13/22 05:35 Hct 31.7 % (42.0-54.0) L 11/13/22 05:35 MCV 88.4 fL (80.0-100.0) 11/13/22 05:35 MCH 30.1 pg (27.0-34.0) 11/13/22 05:35 MCHC 34.1 g/dL (33.0-35.0) 11/13/22 05:35 RDW 13.5 % (11.6-16.5) 11/13/22 05:35 Plt Count 227 X10^3/uL (150.0-450.0) 11/13/22 05:35 MPV 9.0 fL (7.4-11.0) 11/13/22 05:35 Neut % (Auto) 68.9 % (42.0-75.0) 11/13/22 05:35 Lymph % (Auto) 21.9 % (21.0-51.0) 11/13/22 05:35 [place] % (Auto) 7.9 % (0.0-13.0) 11/13/22 05:35 Eos % (Auto) 1.0 % (0.9-2.9) 11/13/22 05:35 Baso % (Auto) 0.3 % (0.2-1.0) 11/13/22 05:35 Neut # (Auto) 3.2 x10^3/uL (2.2-4.8) 11/13/22 05:35 Lymph # (Auto) 1.0 X10^3/uL (1.3-2.9) L 11/13/22 05:35 [place] # (Auto) 0.4 x10^3/uL (0.3-0.8) 11/13/22 05:35 Eos # (Auto) 0.0 x10^3/uL (0.0-0.2) 11/13/22 05:35 Baso # (Auto) 0.0 X10^3/uL (0.0-0.1) 11/13/22 05:35 Absolute Nucleated RBC 0.0 /100WBC 11/13/22 05:35 Sodium 136 mmol/L (136-145) 11/13/22 05:35 Corrected Sodium 137 mmol/L (136-145) 11/13/22 05:35 Potassium 4.1 mmol/L (3.5-5.1) 11/13/22 05:35 Chloride 101 mmol/L (98-107) 11/13/22 05:35 Carbon Dioxide 27.1 mmol/L (21-32) 11/13/22 05:35 BUN 18 mg/dL (7-18) 11/13/22 05:35 Creatinine 0.89 mg/dL (0.70-1.30) 11/13/22 05:35 Est GFR (MDRD) Af Amer > 60 (>60) 11/13/22 05:35 Est GFR (MDRD) Non-Af > 60 (>60) 11/13/22 05:35 Glucose 153 mg/dL (65-99) H 11/13/22 05:35 Calcium 8.7 mg/dL (8.5-10.1) 11/13/22 05:35 Corrected Calcium 10.1 mg/dL (8.5-10.1) 11/13/22 05:35 Magnesium 1.4 mg/dL (2.0-2.9) L 11/13/22 05:35 Total Bilirubin 0.40 mg/dL (0.2-1.0) 11/13/22 05:35 AST 20 Units/L (15-37) 11/13/22 05:35 ALT 17 Units/L (12-78) 11/13/22 05:35 Alkaline Phosphatase 52 Units/L (46-116) 11/13/22 05:35 Creatine Kinase 68 Units/L (39-308) 11/10/22 17:20 Troponin I High Sens 51.2 ng/L (4.0-60.0) 11/10/22 17:20 B-Natriuretic Peptide 627 pg/mL (0-79) H* 11/13/22 05:35 Total Protein 6.7 g/dL (6.4-8.2) 11/13/22 05:35 Albumin 2.2 g/dL (3.4-5.0) L 11/13/22 05:35 Globulin 4.5 g/dL (2.5-4.5) 11/13/22 05:35 Albumin/Globulin Ratio 0.5 Ratio (1.1-2.1) L 11/13/22 05:35 Specimen Type Catherized urine 11/10/22 17:40 Urine Color Yellow (YELLOW) 11/10/22 17:40 Urine Appearance Clear (CLEAR) 11/10/22 17:40 Urine pH 6.0 (5.0 - 8.0) 11/10/22 17:40 Ur Specific [place] 1.020 (1.000-1.030) 11/10/22 17:40 Urine Protein Negative (NEGATIVE) 11/10/22 17:40 Urine Glucose (UA) Negative (NEGATIVE) 11/10/22 17:40 Urine Ketones Negative (NEGATIVE) 11/10/22 17:40 Urine Blood 2+ (NEGATIVE) 11/10/22 17:40 Urine Nitrite Negative (NEGATIVE) 11/10/22 17:40 Urine Bilirubin Negative (NEGATIVE) 11/10/22 17:40 Urine Urobilinogen Normal (NORMAL) 11/10/22 17:40 Ur Leukocyte Esterase Negative (NEGATIVE) 11/10/22 17:40 Urine RBC 3-5 /HPF (0-3) A 11/10/22 17:40 Urine WBC 0-2 /HPF (0-5) 11/10/22 17:40 Ur Squamous Epith Cells Negative /HPF (NEGATIVE) 11/10/22 17:40 Urine Bacteria Negative /HPF (NEGATIVE) 11/10/22 17:40 Ur Culture Indicated? No/not indicated 11/10/22 17:40 SARS-CoV-2 (PCR) Negative (NEGATIVE) 11/10/22 17:09 Influenza Type A (PCR) Positive (NEGATIVE) A 11/10/22 17:09 Influenza Type B (PCR) Negative (NEGATIVE) 11/10/22 17:09 RSV (PCR) Negative (NEGATIVE) 11/10/22 17:09 - Plan (1) CHF (congestive heart failure) Status: Acute Qualifiers: Heart failure type: unspecified Heart failure chronicity: acute on chronic Qualified Code(s): I50.9 - Heart failure, unspecified Plan: SUPPLEMENTAL OXYGEN, ROCEPHIN 1G IV DAILY, TAMIFLU 75MG PO BID, AND THE POTASSIUM AND MAGNESIUM PROTOCOLS, ELIQUIS 5MG BID, METOPROLOL 25MG PO BID, ALDACTONE DAILY (2) Influenza A Status: Acute (3) Atrial fibrillation Status: Acute Qualifiers: Atrial fibrillation type: unspecified Qualified Code(s): I48.91 - Unspecified atrial fibrillation (4) Generalized weakness Status: Acute (5) Hyperlipidemia Status: Chronic Qualifiers: Hyperlipidemia type: mixed hyperlipidemia Qualified Code(s): E78.2 - Mixed hyperlipidemia
[2022-11-13 13:12] LABS: ABG BASE EXCESS 3.2 mmol/L (-2.0-2.0); ABG HCO3 26.9 mmol/L (22-26)
[2022-11-13 13:13] LABS: ABG ALLEN TEST POS
[2022-11-13 13:35] VITALS: BP 127/71
== END 2022-11-13 15:45 | disposition home health service (06) ==
LOC: MED/SURG 16:32 → ER 16:32 → MED/SURG 19:55
PROVIDERS: ADMIT Family Medicine; ATTEND Internal Medicine
DX: E78.2 Mixed hyperlipidemia; I95.89 Other hypotension; I11.0 Hypertensive heart disease with heart failure; R53.1 Weakness; I50.9 Heart failure, unspecified; E03.8 Other specified hypothyroidism; R06.02 Shortness of breath; I48.91 Unspecified atrial fibrillation; Z66 Do not resuscitate; J10.1 Influenza due to other identified influenza virus with other respiratory manifestations

== ENCOUNTER 2025-10-03 15:53 | Inpatient (IN) ==
[2025-10-03 16:44] LABS: MEAN PLATELET VOLUME 7.3 fL (7.4-11.0)
[2025-10-03 16:48] LABS: RED CELL DISTRIBUTION WIDTH 19.2 % (11.6-16.5)
--- NOTE | 2025-10-03 16:48 | EKG ---
Test Reason : sob Blood Pressure : */* mmHG Vent. Rate : 100 BPM Atrial Rate : * BPM P-R Int : * ms QRS Dur : 88 ms QT Int : 370 ms P-R-T Axes : * -16 229 degrees QTc Int : 477 ms Atrial fibrillation with premature ventricular or aberrantly conducted complexes Inferior infarct , age undetermined -new Possible Anterior infarct , age undetermined Nonspecific ST and T wave abnormality Abnormal ECG When compared with ECG of 12-JUN-2025 11:13, ectopy new Confirmed by Anuel Perez MD ([id number]) on 10/04/2025 6:12:22 AM Referred By: Confirmed By: Anuel Perez MD
--- NOTE | 2025-10-03 17:03 | DR.EXTPAIN ---
HPI Time seen Time Seen by Provider: 10/03/25 16:15 PCP Primary Care Physician: Dr. Rodriguez Complaint/Symptoms Chief Complaint:: Patient arrived via POV but EMS was called to assist getting patient out of car. Patient daughter states that the visiting nurse came to see patient today and states that his legs are weeping (left more than right) and needed to come to the ER. pt reports some shortness of breath. Self Treatment fo Chief Complaint: Daughter states that patient is chair bound, he stays in recliner at all times and has sacral/leg wounds from always sitting. pt is incont of stools and she cleans him up. COVID-19 Coronavirus risk:travel/contact w/high risk person: No Has patient experienced Coronavirus symptoms: No Source History Provided: Patient and Family Member Mode of arrival Mode of Arrival: Wheelchair Timing Onset of Chief Complaint: 10/03/25 PMH PMH Past Medical History: Yes Past Medical History: CVA, Dyslipidemia, GERD, Hypertension and Hypothyroidism Past Medical History Comment: AFIB, ulcers Past Surgical History: Yes Surgical History: Tonsillectomy Family History History of Family Medical Conditions: Yes Family Medical History: Diabetes Mellitus, Cancer, Heart Failure, Sudden Cardiac and Hypertension Social History Type of Tobacco Use: None Alcohol Use: None Do you use any recreational Drugs:: Yes (THC) Lives With: Alone Lives Where: Home Travel Risk Coronavirus risk:travel/contact w/high risk person: No Has patient experienced Coronavirus symptoms: No Infectious screening Have you traveled outside the country in the last 6 months?: No Isolation: Standard ROS Review of Systems Constitutional: See HPI Eyes: No Symptoms Reported ENTM: No Symptoms Reported Respiratoy: Short of Breath; negative Wheezing Cardiovascular: See HPI and Edema; negative Chest Pain, Palpitations or Syncope Gastrointestinal/Abdominal: No Symptoms Reported Genitourinary: No Symptoms Reported Neurological: No Symptoms Reported Musculoskeletal: No Symptoms Reported Integumentary: See HPI (Patient has extensive pressure ulcers on his buttocks) Hematologic/Lymphatic: No Symptoms Reported Endocrine: No Symptoms Reported Psychiatric: No Symptoms Reported All Other Systems: Reviewed and Negative PE Vital Signs Vitals: Vital Signs Temperature 99.0 F Pulse Rate 94 Pulse Rate 89 Pulse Rate 92 Pulse Rate 111 Pulse Rate 81 Pulse Rate 116 Pulse Rate 102 Pulse Rate 111 Respiratory Rate 22 Respiratory Rate 20 Blood Pressure 107/57 Blood Pressure 106/59 Blood Pressure 106/59 Blood Pressure 109/57 Blood Pressure 109/57 Blood Pressure 131/60 O2 Sat by Pulse Oximetry 100 O2 Sat by Pulse Oximetry 100 O2 Sat by Pulse Oximetry 100 O2 Sat by Pulse Oximetry 100 O2 Sat by Pulse Oximetry 98 O2 Sat by Pulse Oximetry 75 O2 Sat by Pulse Oximetry 98 O2 Sat by Pulse Oximetry 97 O2 Sat by Pulse Oximetry 93 General Limitations: No Limitations General Appearance: Alert and In No Apparent Distress Head Head Exam: Normal Inspection, Atraumatic and Normocephalic Eyes Eye exam: Normal Appearance, PERRL and EOMI ENT ENT Exam: Normal Exam Neck Neck Exam: Normal Inspection Chest Chest Inspection: Normal Inspection Respiratory Respiratory Exam: Normal Lung Sounds Bilat; negative Respiratory Distress Cardiovascular Cardiovascular Exam: Tachycardia and Irregular Rhythm Abdominal Exam Abdominal Exam: Normal Inspection, Normal Bowel Sounds and Soft; negative Distention, Tenderness, Guarding, Rebound, Rigidity, Organomegaly or Ascites Extremities Extremities Exam: Normal Capillary Refill and Edema (Bilateral pedal edema 2+); negative Calf Tenderness Back Back Exam: Normal Inspection Neurological Neurological Exam: Alert, Oriented X3 and CN II-XII Intact Psychiatric Psychiatric Exam: Normal Affect and Normal Mood Skin Skin Exam: Other (Extensive pressure ulcers on Buttocks) COURSE Treatment Treatment: Patient septic with elevated BNP. Patient also has significant pedal edema. Patient found to be severely anemic. Patient has had anemia chronically and has been working it up with PCP and specialist. Currently having melena and has had some GI studies already performed for this. Per family symptom of melena has not changed and is the same as previous, suspected to be slow GI bleed. Making arrangements for blood transfusion. Tried some fluid resuscitation gently while started antibiotics and got cultures. Consultation Called: 19:05 Consultation Comments: Discussed case with Dr. Allen and she is agreeable to admission. Critical Care Notes Total Time (mins): 48 Critical Diagnosis: Sepsis, severe anemia, GI bleed, hypokalemia, hypomagnesemia, pressure ulcer Critical Interventions: Time spent examining patient, ordering and reviewing lab work and workup, educating patient and family on patient's condition and coordinating care with other physicians for admission. [facility] Labs Reviewed Laboratory Results Reviewed?: Yes 10/03/25 16:29 10/03/25 16:29 Laboratory: WBC 8.2 X10^3/uL (3.6-10.0) 10/03/25 16:29 RBC 2.68 X10^6/uL (4.7-6.0) L 10/03/25 16: Hgb 5.3 g/dL (13.5-18.0) L* 10/03/25 16: Hct 17.5 % (42.0-54.0) L* 10/03/25 16: MCV 65.1 fL (80.0-100.0) L 10/03/25 16: MCH 19.8 pg (27.0-34.0) L 10/03/25 16: MCHC 30.4 g/dL (33.0-35.0) L 10/03/25: RDW 19.2 % (11.6-16.5) H 10/03/25: Plt Count 510 X10^3/uL (150.0-450.0) H 10/03/25: Plt Count Comment Increased (ADEQUATE) 10/03/25: MPV 7.3 fL (7.4-11.0) L 10/03/25: Neut % (Auto) 78.0 % (42.0-75.0) H 10/03/25: Lymph % (Auto) 10.8 % (21.0-51.0) L 10/03/25: [place] % (Auto) 8.7 % (0.0-13.0) 10/03/25: Eos % (Auto) 2.0 % (0.9-2.9) 10/03/25: Baso % (Auto) 0.5 % (0.2-1.0) 10/03/25: Neut # (Auto) 6.4 x10^3/uL (2.2-4.8) H 10/03/25: Lymph # (Auto) 0.9 X10^3/uL (1.3-2.9) L 10/03/25 16: [place] # (Auto) 0.7 x10^3/uL (0.3-0.8) 10/03/25: Eos # (Auto) 0.2 x10^3/uL (0.0-0.2) 10/03/25 16: Baso # (Auto) 0.0 X10^3/uL (0.0-0.1) 10/03/25 16: Absolute Nucleated RBC 0.7 /100WBC 10/03/25 16: Plt Morphology Comment Normal (NORMAL) 10/03/25 16: RBC Morphology Abnormal (NORMAL) 10/03/25 16: Hypochromasia 3+ A 10/03/25 16: Anisocytosis Slight A 10/03/25 16: Microcytosis 1+ A 10/03/25 16: Ovalocytes Present 10/03/25 16: Sodium 135 mmol/L (136-145) L 10/03/25 16: Corrected Sodium 136 mmol/L (136-145) 10/03/25 16: Potassium 3.2 mmol/L (3.5-5.1) L 10/03/25 16: Chloride 100 mmol/L (98-107) 10/03/25 16: Carbon Dioxide 26.3 mmol/L (21-32) 10/03/25 16: BUN 18 mg/dL (7-18) 10/03/25 16: Creatinine 1.14 mg/dL (0.70-1.30) 10/03/25 16: Est GFR (MDRD) Af Amer > 60 (>60) 10/03/25 16: Est GFR (MDRD) Non-Af > 60 (>60) 10/03/25 16: Glucose 133 mg/dL (65-99) H 10/03/25 16: Lactic Acid 3.9 mmol/L (0.4-2.0) H 10/03/25 16: Calcium 8.1 mg/dL (8.5-10.1) L 10/03/25 16: Corrected Calcium 9.5 mg/dL (8.5-10.1) 10/03/25 16: Magnesium 1.6 mg/dL (2.0-2.9) L 10/03/25 16: Total Bilirubin 0.70 mg/dL (0.2-1.0) 10/03/25 16: AST 14 Units/L (15-37) L 10/03/25 16: ALT 12 Units/L (12-78) 10/03/25 16:29 Alkaline Phosphatase 84 Units/L (46-116) 10/03/25 16:29 Creatine Kinase 83 Units/L (39-308) 10/03/25 16:29 Troponin I High Sens 10.3 ng/L (4.0-60.0) 10/03/25 16:29 B-Natriuretic Peptide 393 pg/mL (0-79) H 10/03/25 16:29 Total Protein 5.7 g/dL (6.4-8.2) L 10/03/25 16:29 Albumin 2.2 g/dL (3.4-5.0) L 10/03/25 16:29 Globulin 3.5 g/dL (2.5-4.5) 10/03/25 16:29 Albumin/Globulin Ratio 0.6 Ratio (1.1-2.1) L 10/03/25 16:29 XRAY X-ray Results: Name: GANESH MORROW : 1950 Sex: M Location: ER Order Number(s): [id number] Procedure(s):CHEST, 1 VIEW X-RAY Ordering Physician: Gerhard Jones Primary Care: Yousif Rodriguez Service Date: 10/03/25 Service Time: 1616 EXAM: CHEST, 1 VIEW HISTORY: Shortness of Breath; COMPARISON: June 12, 2025. TECHNIQUE: Chest radiographic imaging, AP portable projection, 1 image FINDINGS: No cardiomegaly. No focal airspace disease. No pleural effusion. No pneumothorax. No acute osseous abnormality. IMPRESSION: No imaging findings of acute cardiopulmonary disease. THIS IS AN ELECTRONICALLY VERIFIED FINAL REPORT 10/03/2025 5:48 PM - Electronically signed by Lucas Persaud MD EKG Rate: 100 [place]: Normal Rhythm: Afib and PVCs ST: Normal Opioid Opioid Risk Tool Age (Cameron box if 16-45): No History of Preadolescent Sexual Abuse: No Total: 0 Total Score Risk Category: Low Risk Copyright: [facility] predicting aberrant behaviors Discharge Plan Diagnosis Discharge Problem: Sepsis, GI bleed, Hypokalemia, Hypomagnesemia Anemia Qualifiers: Iron deficiency anemia type: chronic blood loss Atrial fibrillation Qualifiers: Atrial fibrillation type: unspecified Qualified Code(s): I48.91 - Unspecified atrial fibrillation Discharge Plan Patient Disposition: ADMITTED INPATIENT Condition: Stable Prescriptions: No Action metoprolol succinate 50 mg tablet extended release 24 hr 50 mg PO QDAY furosemide 40 mg tablet 40 mg PO QDAY atorvastatin 20 mg tablet 20 mg PO QDAY sucralfate 1 gram tablet 1 g PO QID Patient Comments: [NO ORIGINAL SIG] spironolactone 25 mg tablet 25 mg PO QDAY terbinafine HCl 250 mg tablet 250 mg PO QDAY pantoprazole 40 mg tablet,delayed release (DR/EC) 40 mg PO BID bumetanide 1 mg tablet 1 mg PO QDAY Eliquis 2.5 mg tablet 2.5 mg PO BID Health Concerns: Post Hospitalization: new medications and changes needed to prevent readmission or further decline. Pt educated and given instructions on all concerns. Plan of Treatment: Continue with present treatment and follow up plan. Pt is to keep follow up appointment as instructed and take medications as ordered. Orders to Discharge Patient Discharge Orders: Transfer (Routine); Ordered 10/03/25 Ordered By: Gerhard Jones Follow ups/Referrals Follow ups/Referrals: Yousif Rodriguez [Primary Care Provider, MEDICAL] - 3 days Instructions Stand Alone Forms: Find Help Web Site, Post Hospital Follow Up Care Print Language: AZERI
[2025-10-03 17:05] LABS: COR CA(FOR HYPOALB) 9.5 mg/dL (8.5-10.1); COR NA(FOR HYPERGLY) 136 mmol/L (136-145); CREATININE 1.14 mg/dL (0.70-1.30); eGFR NON BLACK RACES > 60 (>60)
[2025-10-03] MEDS: LASIX IVP ONE ×2 (17:09→17:44)
[2025-10-03 17:36] LABS: PLATELET MORPHOLOGY COMMENT NORMAL (NORMAL)
[2025-10-03] MEDS: NS 500 ML IV 500 ML IV ONE (17:46)
[2025-10-03] MEDS: VANCOMYCIN IV *PREMIX 1 G/200 ML BAG 1 G/200 ML PIGGYBACK IV ONE (17:48)
--- NOTE | 2025-10-03 17:51 | RAD ---
EXAM: CHEST, 1 VIEW HISTORY: Shortness of Breath; COMPARISON: June 12, 2025. TECHNIQUE: Chest radiographic imaging, AP portable projection, 1 image FINDINGS: No cardiomegaly. No focal airspace disease. No pleural effusion. No pneumothorax. No acute osseous abnormality. IMPRESSION: No imaging findings of acute cardiopulmonary disease. THIS IS AN ELECTRONICALLY VERIFIED FINAL REPORT 10/03/2025 5:48 PM - Electronically signed by Lucas Persaud MD
[2025-10-03] MEDS: NS 1,000 ML IV 1,000 ML IV ONE (18:23)
[2025-10-03 18:40] LABS: BLOOD/HEMOGLOBIN,URINE 4+ (NEGATIVE); LEUKOCYTE ESTERASE ,URINE 1+ (NEGATIVE); NITRITES,URINE NEGATIVE (NEGATIVE)
[2025-10-03 18:49] LABS: APPEARANCE,URINE CLEAR (CLEAR); SQUAMOUS EPITHELIAL CELL,UR NEGATIVE /HPF (NEGATIVE)
[2025-10-03] MEDS: ZOSYN VIAL 3.375 GRAMS 3.375 G in NS 100 ML IV 100 ML IV ONE (19:29)
[2025-10-03] MEDS: K-DUR TAB 20 MEQ PO ONE (19:29)
[2025-10-03] MEDS: MAG-OX TAB PO ONE (19:30)
[2025-10-03 21:51] VITALS: BMI 31.4
[2025-10-03] MEDS ORDERED: CONSULT PHARMACY - POTASSIUM & MAGNESIUM XX SCH (22:36)
[2025-10-03] MEDS ORDERED: TYLENOL 325 MG TAB PO PRN (22:36)
[2025-10-03] MEDS ORDERED: MORPHINE SULFATE INJ 2 MG INJ IVP PRN (22:36)
[2025-10-03] MEDS ORDERED: NS 250 ML IV 25 ML IV PRN (22:36)
[2025-10-04] MEDS: K-DUR TAB 20 MEQ PO SCH (01:12)
[2025-10-04] MEDS: ASCORBIC ACID INJ MULTI-DOSE VIAL 1,500 MG in NS 50 ML IV 50 ML IV SCH (01:12)
[2025-10-04] MEDS: MAG-OX TAB PO SCH (01:12)
[2025-10-04] MEDS: THIAMINE HCL INJ IVP SCH (01:13)
[2025-10-04] MEDS: CARAFATE PO SCH (01:13)
[2025-10-04] MEDS: NORCO 5/325 MG TAB PO PRN (01:13)
[2025-10-04] MEDS: PROTONIX TAB 40 MG PO SCH (01:14)
[2025-10-04] MEDS: NS 1,000 ML IV 1,000 ML IV SCH (01:15)
[2025-10-04] MEDS ORDERED: NS 50 ML IV 50 ML IV ONE (02:36)
[2025-10-04] MEDS: VANCOMYCIN IV *PREMIX 2 G/400 ML BAG 2 G/400 ML PIGGYBACK IV ONE (02:40)
[2025-10-04] MEDS: ZOSYN VIAL 3.375 GRAMS 3.375 G in NS 100 ML IV 100 ML IV SCH (05:22)
[2025-10-04 06:30] LABS: MEAN PLATELET VOLUME 7.5 fL (7.4-11.0); RED CELL DISTRIBUTION WIDTH 22.4 % (11.6-16.5)
[2025-10-04 06:49] LABS: COR CA(FOR HYPOALB) 9.4 mg/dL (8.5-10.1); CREATININE 1.08 mg/dL (0.70-1.30); eGFR NON BLACK RACES > 60 (>60)
[2025-10-04 06:56] LABS: PLATELET MORPHOLOGY COMMENT NORMAL (NORMAL)
[2025-10-04] MEDS ORDERED: NS 1,000 ML IV 1,000 ML with MAGNESIUM SULFATE 50% INJ VIAL 1 G IV SCH (08:00)
[2025-10-04] MEDS: VANCOMYCIN IV *PREMIX 1.5 G/300 ML BAG 1.5 G/300 ML PIGGYBACK IV SCH (08:39)
[2025-10-04] MEDS: LASIX IVP SCH (08:40)
[2025-10-04] MEDS: LIPITOR TAB 20 MG PO SCH (08:40)
[2025-10-04] MEDS: TOPROL XL PO SCH (08:40)
[2025-10-04] MEDS: ALDACTONE TAB 25 MG PO SCH (08:41)
--- NOTE | 2025-10-04 08:41 | RAD ---
EXAMINATION: CHEST, 1 VIEW HISTORY: SOB; CVA, GERD, HTN, AFIB SX: TONSILLECTOMY . COMPARISON STUDY: Chest x-ray 10/03/2025 TECHNIQUE: Single frontal view of the chest FINDINGS: Patchy infiltrates right mid and lower lung, left pulmonary base. [id number] cardiac silhouette enlargement. Normal pulmonary vascular pattern. Mild curvature thoracic spine convexity toward the right. Bones appear intact IMPRESSION: Bilateral pulmonary infiltrates. Cardiac silhouette enlargement. THIS IS AN ELECTRONICALLY VERIFIED FINAL REPORT 10/04/2025 8:37 AM - Electronically signed by Gely To MD
[2025-10-04] MEDS: NS IV ONE (10:02)
[2025-10-04] MEDS: POTASSIUM CHLORIDE IV ONE (10:02)
[2025-10-04] MEDS: [UNRECOGNIZED DRUG - OTHER] IV ONE (10:02)
[2025-10-04] MEDS: PEPCID 20 MG VIAL 20 MG in NS 50 ML IV 50 ML IV SCH (10:06)
[2025-10-04] MEDS: BUTT CREAM (COMPOUND) TOP PRN (10:08)
--- NOTE | 2025-10-04 10:30 | DR.H&P ---
H&P History & Physical for Day of: H&P Date: 10/04/25 Chief Complaint Chief Complaint: weakness, leg swelling History of Present Illness History of Present Illness: Patient is a 74-year-old male with a past medical history of CVA, atrial fibrillation, hypertension, hypothyroidism, anemia and limited mobility presented with worsening lower extremity edema and weakness. ER workup included labs which showed hemoglobin 5.3 potassium 3.2, elevated BNP, negative troponin. Chest x-ray and UA were negative. Patient had elevated lactic acid at 3.9. He was slightly hypotensive on admission. He was started on gentle hydration and IV antibiotics. He also has a sacral wound. Patient was admitted at [facility] in June for GI bleed and underwent further workup including EGD. He was found to have multiple ulcers with no active bleeding. He was supposed to be scheduled for colonoscopy outpatient but has not been able to do so. Family states patient is pretty much bedbound and requires assistance. He has been having dark tarry stools for a while. He takes Eliquis for atrial fibrillation and history of CVA. He did receive 2 units transfusion overnight, hemoglobin 7.2 this morning. Labs/imaging reviewed: - WBC 7.3 hemoglobin 7.2 platelet 471 sodium 137 creatinine 1.08 magnesium 1.6 BNP 393 troponin negative - Chest x-ray negative UA negative - Blood cultures pending - Wound culture pending Plan: [facility]. Monitor hemoglobin, transfuse if below 8. Check anemia panel, occult stool. Obtain records from [facility]. Consult Dr. Gauthier with general surgery. Changed to IV Protonix and add Pepcid. Continue IV antibiotics. Continue IV lasix, monitor I&Os. Wound care as per nursing. Follow pending cultures. Replace electrolytes as per protocol. Resume home medications. Hold Eliquis for now. Monitor a.m. labs and imaging. Time spent for clinical assessment, reviewing labs/imaging, physical exam, decision making and documentation greater than 45 mins. Past Medical History Past Medical History: CVA, Dyslipidemia, GERD, Hypertension and Hypothyroidism Additional Medical History: A-FIB, HERNIA, HIGH CHOLESTEROL Past Surgical History Surgical History: Tonsillectomy Family History Family Medical History: Diabetes Mellitus, Coronary Artery Disease and Hypertension Social History Type of Tobacco Use: None Alcohol Use: None Medications Home Medications: Home Medications Medication Instructions Recorded Confirmed Type metoprolol succinate 50 mg 50 mg PO QDAY 08/04/25 11/2 5/25 History tablet,extended release 24 hr apixaban 2.5 mg tablet (Eliquis) 2.5 mg PO BID 10/03/25 History atorvastatin 20 mg tablet 20 mg PO QDAY 10/03/2510/03 History bumetanide 1 mg tablet 1 mg PO QDAY 10/03/25 History furosemide 40 mg tablet 40 mg PO QDAY 10/03/2510/03 History pantoprazole 40 mg tablet,delayed 40 mg PO BID 10/03/25 History release spironolactone 25 mg tablet 25 mg PO QDAY 10/03/25 History sucralfate 1 gram tablet 1 g PO QID 10/03/25 10/03/25 History terbinafine HCl 250 mg tablet 250 mg PO QDAY 10/03/25 10/03/25 History Allergies Allergies Allergy/AdvReac Type Severity Reaction Status Date / Time No Known Drug Allergies Allergy Verified 10/03/25 16:26 Labs 10/04/25 06:20 10/04/25 06:20 Labs: 10/03/25 16:58 Sacral Wound Gram Stain - Final Laboratory WBC 7.3 X10^3/uL (3.6-10.0) 10/04/25 06:20 RBC 3.31 X10^6/uL (4.7-6.0) L 10/04/25 06:20 Hgb 7.2 g/dL (13.5-18.0) L 10/04/25 06:20 Hct 23.5 % (42.0-54.0) L 10/04/25 06:20 MCV 70.9 fL (80.0-100.0) L 10/04/25 06:20 MCH 21.9 pg (27.0-34.0) L 10/04/25 06:20 MCHC 30.8 g/dL (33.0-35.0) L 10/04/25 06:20 RDW 22.4 % (11.6-16.5) H 10/04/25 06:20 Plt Count 471 X10^3/uL (150.0-450.0) H 10/04/25 06:20 Plt Count Comment Increased (ADEQUATE) 10/04/25 06:20 MPV 7.5 fL (7.4-11.0) 10/04/25 06:20 Neut % (Auto) 66.9 % (42.0-75.0) 10/04/25 06:20 Lymph % (Auto) 15.8 % (21.0-51.0) L 10/04/25 06:20 [place] % (Auto) 12.1 % (0.0-13.0) 10/04/25 06:20 Eos % (Auto) 3.9 % (0.9-2.9) H 10/04/25 06:20 Baso % (Auto) 1.3 % (0.2-1.0) H 10/04/25 06:20 Neut # (Auto) 4.9 x10^3/uL (2.2-4.8) H 10/04/25 06:20 Lymph # (Auto) 1.1 X10^3/uL (1.3-2.9) L 10/04/25 06:20 [place] # (Auto) 0.9 x10^3/uL (0.3-0.8) H 10/04/25 06:20 Eos # (Auto) 0.3 x10^3/uL (0.0-0.2) H 10/04/25 06:20 Baso # (Auto) 0.1 X10^3/uL (0.0-0.1) 10/04/25 06:20 Absolute Nucleated RBC 1.0 /100WBC 10/04/25 06:20 Plt Morphology Comment Normal (NORMAL) 10/04/25 06:20 RBC Morphology Abnormal (NORMAL) 10/04/25 06:20 Hypochromasia 2+ A 10/04/25 06:20 Poikilocytosis 1+ A 10/04/25 06:20 Anisocytosis 2+ A 10/04/25 06:20 Microcytosis Slight A 10/04/25 06:20 Ovalocytes 1+ A 10/04/25 06:20 Sodium 137 mmol/L (136-145) 10/04/25 06:20 Corrected Sodium TNP 10/04/25 06:20 Potassium 3.5 mmol/L (3.5-5.1) 10/04/25 06:20 Chloride 103 mmol/L (98-107) 10/04/25 06:20 Carbon Dioxide 25.9 mmol/L (21-32) 10/04/25 06:20 BUN 17 mg/dL (7-18) 10/04/25 06:20 Creatinine 1.08 mg/dL (0.70-1.30) 10/04/25 06:20 Est GFR (MDRD) Af Amer > 60 (>60) 10/04/25 06:20 Est GFR (MDRD) Non-Af > 60 (>60) 10/04/25 06:20 Glucose 92 mg/dL (65-99) 10/04/25 06:20 Lactic Acid 1.6 mmol/L (0.4-2.0) 10/03/25 18:37 Calcium 7.7 mg/dL (8.5-10.1) L 10/04/25 06:20 Corrected Calcium 9.4 mg/dL (8.5-10.1) 10/04/25 06:20 Magnesium 1.6 mg/dL (2.0-2.9) L 10/04/25 06:20 Total Bilirubin 1.30 mg/dL (0.2-1.0) H 10/04/25 06:20 AST 15 Units/L (15-37) 10/04/25 06:20 ALT 6 Units/L (12-78) L 10/04/25 06:20 Alkaline Phosphatase 77 Units/L (46-116) 10/04/25 06:20 Creatine Kinase 83 Units/L (39-308) 10/03/25 16:29 Troponin I High Sens 10.3 ng/L (4.0-60.0) 10/03/25 16:29 B-Natriuretic Peptide 393 pg/mL (0-79) H 10/03/25 16:29 Total Protein 5.2 g/dL (6.4-8.2) L 10/04/25 06:20 Albumin 1.9 g/dL (3.4-5.0) L 10/04/25 06:20 Globulin 3.3 g/dL (2.5-4.5) 10/04/25 06:20 Albumin/Globulin Ratio 0.6 Ratio (1.1-2.1) L 10/04/25 06:20 Specimen Type Random urine 10/03/25 18: Urine Color Pale yellow (YELLOW) 10/03/25 18: Urine Appearance Clear (CLEAR) 10/03/25 18: Urine pH 6.5 (5.0 - 8.0) 10/03/25 18:26 Ur Specific [place] 1.015 (1.000-1.030) 10/03/25 18: Urine Protein 1+ (NEGATIVE) 10/03/25 18: Urine Glucose (UA) Negative (NEGATIVE) 10/03/25 18: Urine Ketones Negative (NEGATIVE) 10/03/25 18: Urine Blood 4+ (NEGATIVE) 10/03/25 18: Urine Nitrite Negative (NEGATIVE) 10/03/25 18: Urine Bilirubin Negative (NEGATIVE) 10/03/25 18: Urine Urobilinogen Normal (NORMAL) 10/03/25 18:26 Ur Leukocyte Esterase 1+ (NEGATIVE) 10/03/25 18: Urine RBC 5-10 /HPF (0-3) A 10/03/25 18: Urine WBC 3-5 /HPF (0-5) 10/03/25 18:26 Ur Squamous Epith Cells Negative /HPF (NEGATIVE) 10/03/25 18: Urine Bacteria Trace /HPF (NEGATIVE) 10/03/25 18: Ur Culture Indicated? No/not indicated 10/03/25 18: Blood Type O NEGATIVE 10/03/25 17:24 Antibody Screen Negative 10/03/25 17:24 Crossmatch See Detail 10/03/25 17:24 Review of Systems Constitutional: Weakness Eyes: No Symptoms Reported ENT: No Symptoms Reported Respiratory: Shortness of Breath Cardiovascular: Edema Gastrointestinal: Melena Genitourinary: No Symptoms Reported Musculoskeletal: No Symptoms Reported Skin: No Symptoms Reported Neurological: No Symptoms Reported Physical Exam Vital Signs: Vital Signs Temperature 97.8 F Temperature 98.3 F Pulse Rate [Left Brachial] 99 Pulse Rate [Left Brachial] 69 Respiratory Rate 19 Respiratory Rate 22 Respiratory Rate 16 Respiratory Rate 18 Blood Pressure [Right Arm] 110/64 Blood Pressure [Right Arm] 86/54 O2 Sat by Pulse Oximetry 99 O2 Sat by Pulse Oximetry 100 Oriented: Normal Respiratory: Diminished Throughout Cardiovascular: Edema Auscultation: Bowel Sounds: Normal Palpation: Normal Tenderness: Normal Skin: Wound and Other (see images of sacral wound ) Musculoskeletal: Normal Psychiatric: Normal Mood Description: Calm Affect: Normal Speech Pattern: Clear and Appropriate Assessment/Plan (1) GI bleed: Qualifiers: GI bleed type/associated pathology: melena Qualified Code(s): K92.1 - Melena Status: Acute (2) Anemia: Qualifiers: Iron deficiency anemia type: chronic blood loss Anemia type: iron deficiency Qualified Code(s): D50.0 - Iron deficiency anemia secondary to blood loss (chronic) Status: Acute (3) Acute exacerbation of CHF (congestive heart failure): Qualifiers: Heart failure type: unspecified Qualified Code(s): I50.9 - Heart failure, unspecified Status: Chronic (4) Generalized weakness: Status: Acute (5) Atrial fibrillation: Qualifiers: Atrial fibrillation type: unspecified Qualified Code(s): I48.91 - Unspecified atrial fibrillation Status: Chronic (6) Sacral ulcer: Qualifiers: Non-pressure ulcer stage: limited to breakdown of skin Qualified Code(s): 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
[2025-10-04 12:33] LABS: RETICULOCYTE % 2.41 % (0.8-2.2)
[2025-10-04] MEDS ORDERED: VANCOMYCIN HCL 500 MG, VANCOMYCIN HCL 1 G in D5W 250 ML IV 250 ML IV SCH (15:00)
[2025-10-04] MEDS: FOLIC ACID TAB 1 MG PO SCH (17:29)
[2025-10-04] MEDS: NS 250 ML IV 250 ML IV ONE (18:29)
[2025-10-04] MEDS: PULMICORT NEB TX 0.5 MG NEB SCH (20:12)
[2025-10-04] MEDS: DUONEB 0.5 MG/3 MG (3 mL) NEB SCH (20:12)
[2025-10-04] MEDS: PROTONIX INJ 40 MG VIAL IVP SCH (21:11)
[2025-10-05 05:49] LABS: MEAN PLATELET VOLUME 7.3 fL (7.4-11.0); RED CELL DISTRIBUTION WIDTH 22.9 % (11.6-16.5)
[2025-10-05 05:58] LABS: COR CA(FOR HYPOALB) 9.2 mg/dL (8.5-10.1); CREATININE 1.06 mg/dL (0.70-1.30); eGFR NON BLACK RACES > 60 (>60)
[2025-10-05 06:00] LABS: PLATELET MORPHOLOGY COMMENT NORMAL (NORMAL)
[2025-10-05] MEDS: NS 250 ML IV 25 ML IV PRN (06:13)
[2025-10-05] MEDS: ULTRAM PO PRN (09:11)
--- NOTE | 2025-10-05 10:08 | PCM.PROG ---
Progress Note Progress Note for Day of Date of Exam: 10/05/25 Subjective Subjective: Patient is a 74-year-old male with a past medical history of CVA, atrial fibrillation, hypertension, hypothyroidism, anemia and limited mobility admitted for GI bleed, pneumonia, and has chronic sacral wound. This morning he is resting in bed. He continues to complain about pain in his lower back and legs. No acute events overnight. He has received a total of 4 units packed red blood cells and hemoglobin has stabilized at 9. General SurgeryDr. Gauthier has been consulted and will see patient today. Labs/imaging reviewed: - WBC 7.5, hemoglobin 9, platelets 457, sodium 139, potassium 3.2, creatinine 1.06, glucose 98. - Chest x-ray b/l pulmonary infiltrates, AIT pending - Blood cultures NGTD - Wound culture gram negative rods. Plan: Admit to [facility]. Monitor hemoglobin, transfuse if below 8. Stool occult positive. Consulted Dr. Gauthier with general surgery. Continue IV Protonix and Pepcid. Continue IV antibiotics Zosyn. Will adjust pain medication. Continue IV lasix, monitor I&Os. Wound care as per nursing. Follow pending cultures. Replace electrolytes as per protocol. Resume home medications. Hold Eliquis for now. Monitor a.m. labs and imaging. Time spent for clinical assessment, reviewing labs/imaging, physical exam, decision making and documentation greater than 45 mins. Past Medical Family Social History Allergies: Allergies No Known Drug Allergies Allergy (Verified 10/03/25 16:26) Review of Systems ROS changes noted: see HPI Vital Signs and I&O's Vital Signs: Vital Signs Temperature 96.9 F Temperature 97.7 F Pulse Rate [Left Brachial] 64 Pulse Rate [Left Brachial] 102 Pulse Rate 87 Respiratory Rate 20 Respiratory Rate 20 Respiratory Rate 16 Respiratory Rate 19 Respiratory Rate 20 Blood Pressure [Left Arm] 115/51 Blood Pressure [Left Arm] 111/62 O2 Sat by Pulse Oximetry 97 O2 Sat by Pulse Oximetry 98 O2 Sat by Pulse Oximetry 100 Intake and Output: Intake & Output 10/02/25 10/03/25 10/04/25 10/05/25 23:59 23:59 23:59 23:59 Intake Total 240 / 240 4866 / 4866 934 / 934 Output Total 1350 / 1350 880 / 880 520 / 520 Balance -1110 / -1110 3986 / 3986 414 / 414 Physical Exam Oriented: Normal Eyes: Normal Respiratory: Diminished Cardiovascular: Edema Auscultation: Bowel Sounds: Normal Tenderness: Normal Skin: Wound and Other (see images of sacral wound ) Musculoskeletal: Normal Psychiatric: Normal Mood Description: Calm Affect: Normal Speech Pattern: Clear and Appropriate Laboratory and Diagnostics 10/05/25 05:37 10/05/25 05:37 Labs: 10/03/25 16:58 Sacral Wound Gram Stain - Final 10/03/25 16:58 Sacral Wound Culture - Preliminary Acinetobacter Baumanii/Haemoly Pseudomonas Aeruginosa 10/03/25 16:30 Blood Blood Culture - Preliminary 10/03/25 16:29 Blood Blood Culture - Preliminary Laboratory WBC 7.5 X10^3/uL (3.6-10.0) 10/05/25 05:37 RBC 3.82 X10^6/uL (4.7-6.0) L 10/05/25 05:37 Hgb 9.0 g/dL (13.5-18.0) L D 10/05/25 05:37 Hct 28.3 % (42.0-54.0) L 10/05/25 05:37 MCV 74.1 fL (80.0-100.0) L 10/05/25 05:37 MCH 23.5 pg (27.0-34.0) L 10/05/25 05:37 MCHC 31.7 g/dL (33.0-35.0) L 10/05/25 05:37 RDW 22.9 % (11.6-16.5) H 10/05/25 05:37 Plt Count 457 X10^3/uL (150.0-450.0) H 10/05/25 05:37 Plt Count Comment Increased (ADEQUATE) 10/05/25 05:37 MPV 7.3 fL (7.4-11.0) L 10/05/25 05:37 Neut % (Auto) 76.2 % (42.0-75.0) H 10/05/25 05:37 Lymph % (Auto) 11.1 % (21.0-51.0) L 10/05/25 05:37 [place] % (Auto) 7.2 % (0.0-13.0) 10/05/25 05:37 Eos % (Auto) 4.6 % (0.9-2.9) H 10/05/25 05:37 Baso % (Auto) 0.9 % (0.2-1.0) 10/05/25 05:37 Neut # (Auto) 5.7 x10^3/uL (2.2-4.8) H 10/05/25 05:37 Lymph # (Auto) 0.8 X10^3/uL (1.3-2.9) L 10/05/25 05:37 [place] # (Auto) 0.5 x10^3/uL (0.3-0.8) 10/05/25 05:37 Eos # (Auto) 0.3 x10^3/uL (0.0-0.2) H 10/05/25 05:37 Baso # (Auto) 0.1 X10^3/uL (0.0-0.1) 10/05/25 05:37 Absolute Nucleated RBC 0.5 /100WBC 10/05/25 05:37 Plt Morphology Comment Normal (NORMAL) 10/05/25 05:37 RBC Morphology Abnormal (NORMAL) 10/05/25 05:37 Hypochromasia 2+ A 10/04/25 06:20 Poikilocytosis Present 10/05/25 05:37 Anisocytosis 2+ A 10/05/25 05:37 Microcytosis Slight A 10/04/25 06:20 Ovalocytes Present 10/05/25 05:37 Absolute Retic 0.0735 10^6/uL 10/04/25 12:20 Percent Retic 2.41 % (0.8-2.2) H 10/04/25 12:20 Sodium 139 mmol/L (136-145) 10/05/25 05:37 Corrected Sodium TNP 10/05/25 05:37 Potassium 3.2 mmol/L (3.5-5.1) L 10/05/25 05:37 Chloride 106 mmol/L (98-107) 10/05/25 05:37 Carbon Dioxide 26.3 mmol/L (21-32) 10/05/25 05:37 BUN 16 mg/dL (7-18) 10/05/25 05:37 Creatinine 1.06 mg/dL (0.70-1.30) 10/05/25 05:37 Est GFR (MDRD) Af Amer > 60 (>60) 10/05/25 05:37 Est GFR (MDRD) Non-Af > 60 (>60) 10/05/25 05:37 Glucose 98 mg/dL (65-99) 10/05/25 05:37 Lactic Acid 1.6 mmol/L (0.4-2.0) 10/03/25 18:37 Calcium 7.5 mg/dL (8.5-10.1) L 10/05/25 05:37 Corrected Calcium 9.2 mg/dL (8.5-10.1) 10/05/25 05:37 Magnesium 2.0 mg/dL (2.0-2.9) 10/05/25 05:37 Iron 26 ug/dL (50-175) L 10/04/25 12:20 TIBC 221 ug/dL (250-450) L 10/04/25 12:20 Transferrin 161 mg/dL (202-364) L 10/04/25 12:20 Ferritin 18 ng/mL (26-388) L 10/04/25 12:20 Total Bilirubin 1.10 mg/dL (0.2-1.0) H 10/05/25 05:37 AST 21 Units/L (15-37) 10/05/25 05:37 ALT 6 Units/L (12-78) L 10/05/25 05:37 Alkaline Phosphatase 77 Units/L (46-116) 10/05/25 05:37 Creatine Kinase 83 Units/L (39-308) 10/03/25 16:29 Troponin I High Sens 10.3 ng/L (4.0-60.0) 10/03/25 16:29 B-Natriuretic Peptide 393 pg/mL (0-79) H 10/03/25 16:29 Total Protein 5.2 g/dL (6.4-8.2) L 10/05/25 05:37 Albumin 1.9 g/dL (3.4-5.0) L 10/05/25 05:37 Globulin 3.3 g/dL (2.5-4.5) 10/05/25 05:37 Albumin/Globulin Ratio 0.6 Ratio (1.1-2.1) L 10/05/25 05:37 Vitamin B12 1870 pg/mL (193-986) H 10/04/25 12:20 Folate 7.1 ng/mL (>8.6) L 10/04/25 12:20 Specimen Type Random urine 10/03/25 18: Urine Color Pale yellow (YELLOW) 10/03/25 18: Urine Appearance Clear (CLEAR) 10/03/25 18: Urine pH 6.5 (5.0 - 8.0) 10/03/25 18: Ur Specific [place] 1.015 (1.000-1.030) 10/03/25 18: Urine Protein 1+ (NEGATIVE) 10/03/25 18: Urine Glucose (UA) Negative (NEGATIVE) 10/03/25 18: Urine Ketones Negative (NEGATIVE) 10/03/25 18: Urine Blood 4+ (NEGATIVE) 10/03/25 18: Urine Nitrite Negative (NEGATIVE) 10/03/25 18: Urine Bilirubin Negative (NEGATIVE) 10/03/25 18: Urine Urobilinogen Normal (NORMAL) 10/03/25 18: Ur Leukocyte Esterase 1+ (NEGATIVE) 10/03/25 18: Urine RBC 5-10 /HPF (0-3) A 10/03/25 18: Urine WBC 3-5 /HPF (0-5) 10/03/25 18: Ur Squamous Epith Cells Negative /HPF (NEGATIVE) 10/03/25 18: Urine Bacteria Trace /HPF (NEGATIVE) 10/03/25 18: Ur Culture Indicated? No/not indicated 10/03/25 18: Stl Occult Blood (IFOB) Positive (NEGATIVE) A 10/04/25 16:30 Random Vancomycin 27.4 ug/mL 10/05/25 09:04 Blood Type O NEGATIVE 10/03/25 17:24 Antibody Screen Negative 10/03/25 17:24 Crossmatch See Detail 10/03/25 17:24 Plan (1) GI bleed: Status: Acute Qualifiers: GI bleed type/associated pathology: melena Qualified Code(s): K92.1 - Melena (2) Anemia: Status: Acute Qualifiers: Anemia type: iron deficiency Iron deficiency anemia type: chronic blood loss Qualified Code(s): D50.0 - Iron deficiency anemia secondary to blood loss (chronic) (3) Acute exacerbation of CHF (congestive heart failure): Status: Chronic Qualifiers: Heart failure type: unspecified Qualified Code(s): I50.9 - Heart failure, unspecified (4) Generalized weakness: Status: Acute (5) Atrial fibrillation: Status: Chronic Qualifiers: Atrial fibrillation type: unspecified Qualified Code(s): I48.91 - Unspecified atrial fibrillation (6) Sacral ulcer: Status: Chronic Qualifiers: Non-pressure ulcer stage: limited to breakdown of skin Qualified Code(s): 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
[2025-10-05] MEDS ORDERED: CONSULT PHARMACY - POTASSIUM & MAGNESIUM XX SCH (16:00)
[2025-10-05] MEDS: NORCO 10/325 TAB PO PRN (17:37)
--- NOTE | 2025-10-05 17:47 | DR.CONSULT ---
CONSULT Consultation for Day of: Date: 10/05/25 Chief Complaint Chief Complaint: GI bleeding Allergies Allergies Allergy/AdvReac Type Severity Reaction Status Date / Time No Known Drug Allergies Allergy Verified 10/03/25 16:26 History of Present Illness History of Present Illness: This is a 74-year-old male who has had consistent loss of mobility due to chronic health problems. History of CVA, atrial relation, hypertension, hypothyroidism. Patient presented to the emergency room with weakness and anemia with a hemoglobin of 5.3. Patient now received a total of 4 units of blood. Still with dark tarry stools but has been hemodynamically stable. Patient has become bed ridden and also has evidence of significant maceration and early ulceration of both buttocks. Patient has similar presentation to [facility] in June of this year and upper endoscopy showed nonactivity bleeding gastric ulcers. Patient was post have colonoscopy and never had that. Patient is on Eliquis for atrial fibrillation Past Medical History Past Medical History: CVA, Dyslipidemia, GERD, Hypertension and Hypothyroidism Additional Medical History: A-FIB, HERNIA, HIGH CHOLESTEROL Past Surgical History Surgical History: Tonsillectomy Family History Family Medical History: Diabetes Mellitus, Coronary Artery Disease and Hypertension Social History Type of Tobacco Use: None Alcohol Use: None Medications Home Medications: No Known Drug Allergies Allergy (Verified 10/03/25 16:26) CONTINUE taking the following medications apixaban 2.5 mg tablet (Eliquis) 2.5 mg PO BID 10/03/25 [History] atorvastatin 20 mg tablet 20 mg PO QDAY 10/03/25 [History] bumetanide 1 mg tablet 1 mg PO QDAY 10/03/25 [History] furosemide 40 mg tablet 40 mg PO QDAY 10/03/25 [History] pantoprazole 40 mg tablet,delayed release 40 mg PO BID 10/03/25 [History] spironolactone 25 mg tablet 25 mg PO QDAY 10/03/25 [History] sucralfate 1 gram tablet 1 g PO QID 10/03/25 [History] terbinafine HCl 250 mg tablet 250 mg PO QDAY 10/03/25 [History] Review of Systems Constitutional: See HPI Eyes: No Symptoms Reported ENT: No Symptoms Reported Respiratory: No Symptoms Reported Cardiovascular: No Symptoms Reported Gastrointestinal: See HPI Genitourinary: No Symptoms Reported Musculoskeletal: See HPI Skin: See HPI Neurological: See HPI Physical Exam Vital Signs: Vital Signs Temperature 97.3 F Temperature 97.4 F Pulse Rate [Left Brachial] 84 Pulse Rate [Left Brachial] 91 Pulse Rate 53 Respiratory Rate 16 Respiratory Rate 18 Respiratory Rate 19 Respiratory Rate 20 Blood Pressure [Left Arm] 96/51 Blood Pressure [Left Arm] 98/56 O2 Sat by Pulse Oximetry 96 O2 Sat by Pulse Oximetry 96 O2 Sat by Pulse Oximetry 100 Oriented: Not Oriented and Unable to test (Patient would not answer questions) Eyes: Normal Ear: Normal Nose: Normal Throat: Normal Respiratory: Diminished Throughout Cardiovascular: Normal : Normal Auscultation: Bowel Sounds: Normal Palpation: Normal Tenderness: Normal Skin: Other (Maceration of the buttocks bilaterally with superficial ulceration of the right buttock and multiple areas into the subdermal layers. No active bleeding) Musculoskeletal: negative Normal (Patient has not been ambulatory for many months) Psychiatric: Other (Difficult to test) Mood Description: Anxious and Labile Affect: Depressed Speech Pattern: Unable to speak Plan (1) GI bleed: Status: Acute Qualifiers: GI bleed type/associated pathology: melena Qualified Code(s): K92.1 - Melena Plan: Patient has received a total of 4 units of blood. He has been hemodynamically stable. Will plan upper endoscopy and hopefully will plan colonoscopy in the near future as well. Bowel prep will be difficult due to his immobility. (2) Anemia: Status: Acute Qualifiers: Anemia type: iron deficiency Iron deficiency anemia type: chronic blood loss Qualified Code(s): D50.0 - Iron deficiency anemia secondary to blood loss (chronic) Plan: as above (3) Acute exacerbation of CHF (congestive heart failure): Status: Chronic Qualifiers: Heart failure type: unspecified Qualified Code(s): I50.9 - Heart failure, unspecified Plan: MEDICAL TREATMENT (4) Generalized weakness: Status: Acute (5) Atrial fibrillation: Status: Chronic Qualifiers: Atrial fibrillation type: unspecified Qualified Code(s): I48.91 - Unspecified atrial fibrillation (6) Sacral ulcer: Status: Chronic Qualifiers: Non-pressure ulcer stage: limited to breakdown of skin Qualified Code(s): 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 Obtain a bed to help reduce pressure (7) Pneumonia: Status: Acute Qualifiers: Pneumonia type: due to unspecified organism Laterality: bilateral Lung location: unspecified part of lung Qualified Code(s): J18.9 - Pneumonia, unspecified organism
[2025-10-05] MEDS: COLACE CAP 100 MG PO SCH (20:58)
[2025-10-05] MEDS: KLOR-CON PO SCH (20:58)
[2025-10-05] MEDS: PHARMACY COMMENT IV ONE (21:46)
[2025-10-05] MEDS: PHARMACY COMMENT IV SCH (21:48)
[2025-10-05] MEDS: VANCOMYCIN IV *PREMIX 750 mg/150 ML BAG 750 MG/150 ML PIGGYBACK IV SCH (22:40)
[2025-10-06] MEDS: HIBICLENS WASH EXT ONE (05:03)
[2025-10-06 06:22] LABS: MEAN PLATELET VOLUME 7.5 fL (7.4-11.0); RED CELL DISTRIBUTION WIDTH 22.9 % (11.6-16.5)
[2025-10-06 06:32] LABS: COR CA(FOR HYPOALB) 9.5 mg/dL (8.5-10.1); CREATININE 1.07 mg/dL (0.70-1.30); eGFR NON BLACK RACES > 60 (>60)
[2025-10-06 06:49] LABS: PLATELET MORPHOLOGY COMMENT NORMAL (NORMAL)
[2025-10-06] MEDS ORDERED: CONSULT PHARMACY - POTASSIUM & MAGNESIUM XX SCH (07:00)
[2025-10-06] MEDS: DIPRIVAN VIAL 20 ML ONE (10:26)
[2025-10-06] MEDS: XYLOCAINE 2 % (PLAIN) ONE (10:26)
[2025-10-06] MEDS: NS 1,000 ML IV 1,000 ML ONE (10:31)
[2025-10-06] MEDS: NS 1,000 ML IV 100 ML IV PRN (10:39)
[2025-10-06] MEDS: XYLOCAINE 2 % (PLAIN) IVP PRN (10:52)
[2025-10-06] MEDS: DIPRIVAN VIAL 100 ML IVP PRN (10:53)
--- NOTE | 2025-10-06 11:08 | OR.IMMED ---
IMMEDIATE POST-OP NOTE Immediate Post-Op Note Date of surgery/procedure: 10/06/25 Pre-Op Diagnosis: GI bleed Post-Op Diagnosis: Normal Stomach and duodenum with no ulcerations and no inflammation and no blood Procedure: Esophagogastroduodenoscopy Description of Procedure: see dictation Surgeon/Fountain Manager: Ashkan Gauthier MD, FACS Findings: Normal-appearing stomach and duodenum. No inflammation. No bleeding, no ulcerations Estimated Blood Loss: none Complications: none Progress Notes: Return to floor. Resume diet. Will plan colonoscopy first of the week.
[2025-10-06] MEDS: K-DUR TAB 20 MEQ PO SCH ×2 (11:21→21:07)
[2025-10-06] MEDS: MERREM VIAL 1 G in NS 100 ML IV 100 ML IV SCH (11:31)
--- NOTE | 2025-10-06 11:55 | PCM.PROG ---
Progress Note Progress Note for Day of Date of Exam: 10/06/25 Subjective Subjective: Patient seen at bedside, no acute events overnight. He is currently admitted for GI bleed, anemia and sacral wound. Surgery has been following, plan for EGD today. He has received 4 units of blood transfusion. Hemoglobin remained stable at 9.0. Chest x-ray did show bilateral infiltrates. Wound cultures have also been finalized. He is currently on Vanco and Zosyn. Labs/imaging reviewed: - WBC 9.3 hemoglobin 9.0 potassium 3.5 creatinine 1.07 - Stool occult positive - Chest x-ray reviewed - Wound cultures reviewed Plan: EGD today, follow surgery recommendations. Stop Vanco and Zosyn, switch to meropenem. Replace electrolytes as per protocol. Monitor H&H. Continue Protonix and Pepcid. Continue wound care as per nursing. Continue diuretics. Continue home medications. Continue bronchodilators. Monitor a.m. labs and imaging. Time spent for clinical assessment, reviewing labs/imaging, physical exam, decision making and documentation greater than 45 mins. Past Medical Family Social History Allergies: Allergies No Known Drug Allergies Allergy (Verified 10/03/25 16:26) Vital Signs and I&O's Vital Signs: Vital Signs Temperature 98.0 F Temperature 97.8 F Temperature 97.4 F Pulse Rate [Left Brachial] 106 Pulse Rate [Left Brachial] 95 Pulse Rate [Left Brachial] 97 Pulse Rate 87 Respiratory Rate 19 Respiratory Rate 18 Respiratory Rate 20 Respiratory Rate 18 Respiratory Rate 20 Blood Pressure [Right Arm] 99/57 Blood Pressure [Right Arm] 109/57 Blood Pressure [Right Arm] 125/76 O2 Sat by Pulse Oximetry 100 O2 Sat by Pulse Oximetry 97 O2 Sat by Pulse Oximetry 96 O2 Sat by Pulse Oximetry 100 Intake and Output: Intake & Output 10/03/25 10/04/25 10/05/25 10/06/25 23:59 23:59 23:59 23:59 Intake Total 240 / 240 4866 / 4866 2675 / 2675 410 / 410 Output Total 1350 / 1350 880 / 880 2125 / 2125 300 / 300 Balance -1110 / -1110 3986 / 3986 550 / 550 110 / 110 Physical Exam Eyes: Normal Ear: Normal Nose: Normal Throat: Normal Respiratory: Diminished Cardiovascular: Normal : Normal Auscultation: Bowel Sounds: Normal Tenderness: Normal Skin: Other (Maceration of the buttocks bilaterally with superficial ulceration of the right buttock and multiple areas into the subdermal layers. No active bleeding) Musculoskeletal: negative Normal (Patient has not been ambulatory for many months) Psychiatric: Other (Difficult to test) Mood Description: Calm Affect: Depressed Speech Pattern: Clear and Appropriate Laboratory and Diagnostics 10/06/25 05:59 10/06/25 05:59 Labs: 10/03/25 16:58 Sacral Wound Gram Stain - Final 10/03/25 16:58 Sacral Wound Culture - Final Acinetobacter Baumanii/Haemoly Pseudomonas Aeruginosa Proteus Mirabilis 10/03/25 16:30 Blood Blood Culture - Preliminary 10/03/25 16:29 Blood Blood Culture - Preliminary Laboratory WBC 9.3 X10^3/uL (3.6-10.0) 10/06/25 05:59 RBC 3.79 X10^6/uL (4.7-6.0) L 10/06/25 05:59 Hgb 9.0 g/dL (13.5-18.0) L 10/06/25 05:59 Hct 28.0 % (42.0-54.0) L 10/06/25 05:59 MCV 73.9 fL (80.0-100.0) L 10/06/25 05:59 MCH 23.7 pg (27.0-34.0) L 10/06/25 05:59 MCHC 32.1 g/dL (33.0-35.0) L 10/06/25 05:59 RDW 22.9 % (11.6-16.5) H 10/06/25 05:59 Plt Count 452 X10^3/uL (150.0-450.0) H 10/06/25 05:59 Plt Count Comment Increased (ADEQUATE) 10/06/25 05:59 MPV 7.5 fL (7.4-11.0) 10/06/25 05:59 Neut % (Auto) 80.1 % (42.0-75.0) H 10/06/25 05:59 Lymph % (Auto) 11.0 % (21.0-51.0) L 10/06/25 05:59 [place] % (Auto) 6.1 % (0.0-13.0) 10/06/25 05:59 Eos % (Auto) 2.0 % (0.9-2.9) 10/06/25 05:59 Baso % (Auto) 0.8 % (0.2-1.0) 10/06/25 05:59 Neut # (Auto) 7.5 x10^3/uL (2.2-4.8) H 10/06/25 05:59 Lymph # (Auto) 1.0 X10^3/uL (1.3-2.9) L 10/06/25 05:59 [place] # (Auto) 0.6 x10^3/uL (0.3-0.8) 10/06/25 05:59 Eos # (Auto) 0.2 x10^3/uL (0.0-0.2) 10/06/25 05:59 Baso # (Auto) 0.1 X10^3/uL (0.0-0.1) 10/06/25 05:59 Absolute Nucleated RBC 0.3 /100WBC 10/06/25 05:59 Plt Morphology Comment Normal (NORMAL) 10/06/25 05:59 RBC Morphology Abnormal (NORMAL) 10/06/25 05:59 Hypochromasia 2+ A 10/04/25 06:20 Poikilocytosis 1+ A 10/06/25 05:59 Anisocytosis 2+ A 10/06/25 05:59 Microcytosis Slight A 10/06/25 05:59 Ovalocytes 1+ A 10/06/25 05:59 Absolute Retic 0.0735 10^6/uL 10/04/25 12:20 Percent Retic 2.41 % (0.8-2.2) H 10/04/25 12:20 Sodium 142 mmol/L (136-145) 10/06/25 05:59 Corrected Sodium TNP 10/06/25 05:59 Potassium 3.5 mmol/L (3.5-5.1) 10/06/25 05:59 Chloride 108 mmol/L (98-107) H 10/06/25 05:59 Carbon Dioxide 24.3 mmol/L (21-32) 10/06/25 05:59 BUN 12 mg/dL (7-18) 10/06/25 05:59 Creatinine 1.07 mg/dL (0.70-1.30) 10/06/25 05:59 Est GFR (MDRD) Af Amer > 60 (>60) 10/06/25 05:59 Est GFR (MDRD) Non-Af > 60 (>60) 10/06/25 05:59 Glucose 88 mg/dL (65-99) 10/06/25 05:59 Lactic Acid 1.6 mmol/L (0.4-2.0) 10/03/25 18:37 Calcium 7.7 mg/dL (8.5-10.1) L 10/06/25 05:59 Corrected Calcium 9.5 mg/dL (8.5-10.1) 10/06/25 05:59 Magnesium 2.0 mg/dL (2.0-2.9) 10/05/25 05:37 Iron 26 ug/dL (50-175) L 10/04/25 12:20 TIBC 221 ug/dL (250-450) L 10/04/25 12:20 Transferrin 161 mg/dL (202-364) L 10/04/25 12:20 Ferritin 18 ng/mL (26-388) L 10/04/25 12:20 Total Bilirubin 0.70 mg/dL (0.2-1.0) 10/06/25 05:59 AST 21 Units/L (15-37) 10/06/25 05:59 ALT 8 Units/L (12-78) L 10/06/25 05:59 Alkaline Phosphatase 69 Units/L (46-116) 10/06/25 05:59 Creatine Kinase 83 Units/L (39-308) 10/03/25 16:29 Troponin I High Sens 10.3 ng/L (4.0-60.0) 10/03/25 16:29 B-Natriuretic Peptide 393 pg/mL (0-79) H 10/03/25 16:29 Total Protein 5.1 g/dL (6.4-8.2) L 10/06/25 05:59 Albumin 1.8 g/dL (3.4-5.0) L 10/06/25 05:59 Globulin 3.3 g/dL (2.5-4.5) 10/06/25 05:59 Albumin/Globulin Ratio 0.5 Ratio (1.1-2.1) L 10/06/25 05:59 Vitamin B12 1870 pg/mL (193-986) H 10/04/25 12:20 Folate 7.1 ng/mL (>8.6) L 10/04/25 12:20 Specimen Type Random urine 10/03/25 18: Urine Color Pale yellow (YELLOW) 10/03/25 18: Urine Appearance Clear (CLEAR) 10/03/25 18: Urine pH 6.5 (5.0 - 8.0) 10/03/25 18: Ur Specific [place] 1.015 (1.000-1.030) 10/03/25 18: Urine Protein 1+ (NEGATIVE) 10/03/25 18: Urine Glucose (UA) Negative (NEGATIVE) 10/03/25 18: Urine Ketones Negative (NEGATIVE) 10/03/25 18: Urine Blood 4+ (NEGATIVE) 10/03/25 18: Urine Nitrite Negative (NEGATIVE) 10/03/25 18: Urine Bilirubin Negative (NEGATIVE) 10/03/25 18: Urine Urobilinogen Normal (NORMAL) 10/03/25 18:26 Ur Leukocyte Esterase 1+ (NEGATIVE) 10/03/25 18: Urine RBC 5-10 /HPF (0-3) A 10/03/25 18: Urine WBC 3-5 /HPF (0-5) 10/03/25 18: Ur Squamous Epith Cells Negative /HPF (NEGATIVE) 10/03/25 18: Urine Bacteria Trace /HPF (NEGATIVE) 10/03/25 18: Ur Culture Indicated? 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) (3) Acute exacerbation of CHF (congestive heart failure): Status: Chronic Qualifiers: Heart failure type: unspecified Qualified Code(s): I50.9 - Heart failure, unspecified (4) Generalized weakness: Status: Acute (5) Atrial fibrillation: Status: Chronic Qualifiers: Atrial fibrillation type: unspecified Qualified Code(s): I48.91 - Unspecified atrial fibrillation (6) Sacral ulcer: Status: Chronic Qualifiers: Non-pressure ulcer stage: limited to breakdown of skin Qualified Code(s): L98.421 - 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
[2025-10-06] MEDS: ATIVAN TAB 0.5 MG PO PRN (14:08)
--- NOTE | 2025-10-06 17:22 | DR.OPNOTE ---
OP NOTE Pre-Op Diagnosis: Evidence of GI bleeding.Received 4 units of blood. Hemodynamically stable Post-Op Diagnosis: Normal stomach and duodenum, no bleeding, no ulcers, no inflammation Procedure Date Date Of Procedure: 10/06/25 Procedure: PROCEDURE: Esophagoduodenoscopy NARRATIVE: The patient was taken to the operative suite and placed in the left lateral position. He was given intravenous sedation. Timeout for the procedure obtained . The bite-block was placed and the flexible endoscope introduced into the mouth into the esophagus where esophagus was normal. Nose no inflammation or ulceration. The gastroesophageal action was had a normal location at 40 cm. The stomach was normal with no bleeding, no ulcerations, no inflammation, the duodenum was also normal. Scope withdrawn and the patient tolerated this well. Anesthesia Comment: MAC anesthesia z Findings: No blood, no bleeding, no ulcerations, no inflammation of stomach or duodenum Type of Fluids Used:: Lactated Ringers EBL: none Complications:: none Disposition/Condition: Pt. tolerated procedure without difficulty. Taken to the floor in stable condition.
[2025-10-06] MEDS: MIRALAX POWDER (1 DOSE 17 G) PO SCH (21:07)
[2025-10-07] MEDS: VISTARIL PO PRN (01:43)
[2025-10-07] MEDS ORDERED: PHARMACY COMMENT IV ONE (08:00)
[2025-10-07 11:17] LABS: MEAN PLATELET VOLUME 7.3 fL (7.4-11.0); RED CELL DISTRIBUTION WIDTH 23.8 % (11.6-16.5)
--- NOTE | 2025-10-07 11:32 | PCM.PROG ---
Progress Note Progress Note for Day of Date of Exam: 10/07/25 Subjective Subjective: Patient seen at bedside, overnight he was agitated. He removed IV access multiple times and unable to obtain another access yesterday. He did have EGD which did not show any acute bleeding or ulcers. His hemoglobin has been stable. His wound culture was reviewed and switched to meropenem. Labs/imaging reviewed: - A.m. labs are collected - Wound culture reviewed Plan: Obtain IV access, continue current medications. Continue IV meropenem. Monitor hemoglobin. Continue wound care as per surgery. Continue home medications. Replace electrolytes as per protocol. Patient will need rehab placement. PT/OT. Monitor a.m. labs and imaging. Past Medical Family Social History Allergies: Allergies No Known Drug Allergies Allergy (Verified 10/03/25 16:26) Vital Signs and I&O's Vital Signs: Vital Signs Temperature 98.7 F Pulse Rate [Left Brachial] 121 Pulse Rate 63 Respiratory Rate 20 Blood Pressure [Left Arm] 126/57 O2 Sat by Pulse Oximetry 97 O2 Sat by Pulse Oximetry 95 Intake and Output: Intake & Output 10/04/25 10/05/25 10/06/25 10/07/25 23:59 23:59 23:59 23:59 Intake Total 4866 / 4866 2675 / 2675 1399 / 1399 1500 / 1500 Output Total 880 / 880 2125 / 2125 500 / 500 Balance 3986 / 3986 550 / 550 899 / 899 1500 / 1500 Physical Exam Oriented: Not Oriented and Unable to test (Patient would not answer questions) Eyes: Normal Ear: Normal Nose: Normal Throat: Normal Respiratory: Diminished Cardiovascular: Normal Auscultation: Bowel Sounds: Normal Palpation: Normal Tenderness: Normal Skin: Other (Maceration of the buttocks bilaterally with superficial ulceration of the right buttock and multiple areas into the subdermal layers. No active bleeding) Musculoskeletal: negative Normal (Patient has not been ambulatory for many months) Psychiatric: Other (Difficult to test) Mood Description: Calm Affect: Depressed Speech Pattern: Clear and Appropriate Laboratory and Diagnostics 10/06/25 05:59 10/06/25 05:59 Labs: 10/03/25 16:58 Sacral Wound Gram Stain - Final 10/03/25 16:58 Sacral Wound Culture - Final Acinetobacter Baumanii/Haemoly Pseudomonas Aeruginosa Proteus Mirabilis 10/03/25 16:30 Blood Blood Culture - Preliminary 10/03/25 16:29 Blood Blood Culture - Preliminary Laboratory WBC Cancelled 10/07/25 05:07 RBC Cancelled 10/07/25 05:07 Hgb Cancelled 10/07/25 05:07 Hct Cancelled 10/07/25 05:07 MCV Cancelled 10/07/25 05:07 MCH Cancelled 10/07/25 05:07 MCHC Cancelled 10/07/25 05:07 RDW Cancelled 10/07/25 05:07 Plt Count Cancelled 10/07/25 05:07 Plt Count Comment Increased (ADEQUATE) 10/06/25 05:59 MPV Cancelled 10/07/25 05:07 Neut % (Auto) Cancelled 10/07/25 05:07 Lymph % (Auto) Cancelled 10/07/25 05:07 [place] % (Auto) Cancelled 10/07/25 05:07 Eos % (Auto) Cancelled 10/07/25 05:07 Baso % (Auto) Cancelled 10/07/25 05:07 Neut # (Auto) Cancelled 10/07/25 05:07 Lymph # (Auto) Cancelled 10/07/25 05:07 [place] # (Auto) Cancelled 10/07/25 05:07 Eos # (Auto) Cancelled 10/07/25 05:07 Baso # (Auto) Cancelled 10/07/25 05:07 Absolute Nucleated RBC Cancelled 10/07/25 05:07 Plt Morphology Comment Normal (NORMAL) 10/06/25 05:59 RBC Morphology Abnormal (NORMAL) 10/06/25 05:59 Hypochromasia 2+ A 10/04/25 06:20 Poikilocytosis 1+ A 10/06/25 05:59 Anisocytosis 2+ A 10/06/25 05:59 Microcytosis Slight A 10/06/25 05:59 Ovalocytes 1+ A 10/06/25 05:59 Absolute Retic 0.0735 10^6/uL 10/04/25 12:20 Percent Retic 2.41 % (0.8-2.2) H 10/04/25 12:20 Sodium 142 mmol/L (136-145) 10/06/25 05:59 Corrected Sodium TNP 10/06/25 05:59 Potassium 3.5 mmol/L (3.5-5.1) 10/06/25 05:59 Chloride 108 mmol/L (98-107) H 10/06/25 05:59 Carbon Dioxide 24.3 mmol/L (21-32) 10/06/25 05:59 BUN 12 mg/dL (7-18) 10/06/25 05:59 Creatinine 1.07 mg/dL (0.70-1.30) 10/06/25 05:59 Est GFR (MDRD) Af Amer > 60 (>60) 10/06/25 05:59 Est GFR (MDRD) Non-Af > 60 (>60) 10/06/25 05:59 Glucose 88 mg/dL (65-99) 10/06/25 05:59 Lactic Acid 1.6 mmol/L (0.4-2.0) 10/03/25 18:37 Calcium 7.7 mg/dL (8.5-10.1) L 10/06/25 05:59 Corrected Calcium 9.5 mg/dL (8.5-10.1) 10/06/25 05:59 Magnesium 2.0 mg/dL (2.0-2.9) 10/05/25 05:37 Iron 26 ug/dL (50-175) L 10/04/25 12:20 TIBC 221 ug/dL (250-450) L 10/04/25 12:20 Transferrin 161 mg/dL (202-364) L 10/04/25 12:20 Ferritin 18 ng/mL (26-388) L 10/04/25 12:20 Total Bilirubin 0.70 mg/dL (0.2-1.0) 10/06/25 05:59 AST 21 Units/L (15-37) 10/06/25 05:59 ALT 8 Units/L (12-78) L 10/06/25 05:59 Alkaline Phosphatase 69 Units/L (46-116) 10/06/25 05:59 Creatine Kinase 83 Units/L (39-308) 10/03/25 16:29 Troponin I High Sens 10.3 ng/L (4.0-60.0) 10/03/25 16:29 B-Natriuretic Peptide 393 pg/mL (0-79) H 10/03/25 16:29 Total Protein 5.1 g/dL (6.4-8.2) L 10/06/25 05:59 Albumin 1.8 g/dL (3.4-5.0) L 10/06/25 05:59 Globulin 3.3 g/dL (2.5-4.5) 10/06/25 05:59 Albumin/Globulin Ratio 0.5 Ratio (1.1-2.1) L 10/06/25 05:59 Vitamin B12 1870 pg/mL (193-986) H 10/04/25 12:20 Folate 7.1 ng/mL (>8.6) L 10/04/25 12:20 Specimen Type Random urine 10/03/25 18: Urine Color Pale yellow (YELLOW) 10/03/25 18: Urine Appearance Clear (CLEAR) 10/03/25 18: Urine pH 6.5 (5.0 - 8.0) 10/03/25 18: Ur Specific [place] 1.015 (1.000-1.030) 10/03/25 18: Urine Protein 1+ (NEGATIVE) 10/03/25 18: Urine Glucose (UA) Negative (NEGATIVE) 10/03/25 18: Urine Ketones Negative (NEGATIVE) 10/03/25 18: Urine Blood 4+ (NEGATIVE) 10/03/25 18: Urine Nitrite Negative (NEGATIVE) 10/03/25 18: Urine Bilirubin Negative (NEGATIVE) 10/03/25 18: Urine Urobilinogen Normal (NORMAL) 10/03/25 18:26 Ur Leukocyte Esterase 1+ (NEGATIVE) 10/03/25 18: Urine RBC 5-10 /HPF (0-3) A 10/03/25 18: Urine WBC 3-5 /HPF (0-5) 10/03/25 18: Ur Squamous Epith Cells Negative /HPF (NEGATIVE) 10/03/25 18: Urine Bacteria Trace /HPF (NEGATIVE) 10/03/25 18: Ur Culture Indicated? 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) (3) Acute exacerbation of CHF (congestive heart failure): Status: Chronic Qualifiers: Heart failure type: unspecified Qualified Code(s): I50.9 - Heart failure, unspecified (4) Generalized weakness: Status: Acute (5) Atrial fibrillation: Status: Chronic Qualifiers: Atrial fibrillation type: unspecified Qualified Code(s): I48.91 - Unspecified atrial fibrillation (6) Sacral ulcer: Status: Chronic Qualifiers: Non-pressure ulcer stage: limited to breakdown of skin Qualified Code(s): 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
[2025-10-07 11:42] LABS: PLATELET MORPHOLOGY COMMENT NORMAL (NORMAL)
[2025-10-07 11:43] LABS: COR CA(FOR HYPOALB) 9.6 mg/dL (8.5-10.1); CREATININE 1.00 mg/dL (0.70-1.30); eGFR NON BLACK RACES > 60 (>60)
--- NOTE | 2025-10-07 13:36 | NOTE.SOAP ---
Soap Note Note for Day of Date of Exam: 10/07/25 Subjective Data Subjective Data: Status post upper endoscopy yesterday showing no obvious bleeding patient stable. Hemoglobin stable at 9 g . Objective Data Temperature: 97.7 F Pulse Rate: 63 Respiratory Rate: 19 Blood Pressure: 127/80 O2 Sat by Pulse Oximetry: 94 Objective Data: Abdomen soft and benign. Hemoglobin stable at 9 g. Wounds unchanged Assessment Assessment: Evidence of GI bleeding. Normal upper endoscopy will plan colonoscopy next week. Wounds are stable Plan Plan: as above
[2025-10-08 06:23] LABS: MEAN PLATELET VOLUME 7.4 fL (7.4-11.0); RED CELL DISTRIBUTION WIDTH 24.7 % (11.6-16.5)
[2025-10-08 06:36] LABS: COR CA(FOR HYPOALB) 9.9 mg/dL (8.5-10.1); CREATININE 0.89 mg/dL (0.70-1.30); eGFR NON BLACK RACES > 60 (>60)
[2025-10-08 07:03] LABS: PLATELET MORPHOLOGY COMMENT NORMAL (NORMAL)
[2025-10-08] MEDS ORDERED: CONSULT PHARMACY - POTASSIUM & MAGNESIUM XX SCH (08:00)
[2025-10-08] MEDS: K-DUR TAB 20 MEQ PO SCH (09:16)
[2025-10-08] MEDS: MAG-OX TAB PO SCH (09:16)
[2025-10-08] MEDS: DUONEB 0.5 MG/3 MG (3 mL) NEB SCH (09:51)
--- NOTE | 2025-10-08 12:15 | PCM.PROG ---
Progress Note Progress Note for Day of Date of Exam: 10/08/25 Subjective Subjective: Patient seen at bedside, no acute events overnight. He does have IV access now. He is currently on IV meropenem for sacral wound. His Hgb remains stable. Labs/imaging reviewed: - WBC 6.4 Hgb 9.2 Plt 488 K 3.6 Cr 0.89 - Wound culture reviewed Plan: Continue current medications. Continue IV meropenem. Monitor hemoglobin. Continue wound care as per surgery. Continue home medications. Replace electrolytes as per protocol. Patient will need rehab placement. PT/OT. Check with surgery if plan to do colonoscopy while inpatient. Monitor a.m. labs and imaging. Past Medical Family Social History Allergies: Allergies No Known Drug Allergies Allergy (Verified 10/03/25 16:26) Vital Signs and I&O's Vital Signs: Vital Signs Temperature 98.5 F Pulse Rate [Left Brachial] 112 Respiratory Rate 19 Blood Pressure [Left Arm] 127/81 O2 Sat by Pulse Oximetry 98 Intake and Output: Intake & Output 10/05/25 10/06/25 10/07/25 10/08/25 23:59 23:59 23:59 23:59 Intake Total 2675 / 2675 1399 / 1399 2402 / 2402 294 / 294 Output Total 2125 / 2125 500 / 500 Balance 550 / 550 899 / 899 2402 / 2402 294 / 294 Physical Exam Oriented: Not Oriented and Unable to test (Patient would not answer questions) Eyes: Normal Ear: Normal Nose: Normal Throat: Normal Respiratory: Diminished Cardiovascular: Normal Auscultation: Bowel Sounds: Normal Palpation: Normal Tenderness: Normal Skin: Other (Maceration of the buttocks bilaterally with superficial ulceration of the right buttock and multiple areas into the subdermal layers. No active bleeding) Musculoskeletal: negative Normal (Patient has not been ambulatory for many months) Psychiatric: Other (Difficult to test) Mood Description: Calm Affect: Depressed Speech Pattern: Clear Laboratory and Diagnostics 10/08/25 05:50 10/08/25 05:50 Labs: 10/03/25 16:58 Sacral Wound Gram Stain - Final 10/03/25 16:58 Sacral Wound Culture - Final Acinetobacter Baumanii/Haemoly Pseudomonas Aeruginosa Proteus Mirabilis 10/03/25 16:30 Blood Blood Culture - Preliminary 10/03/25 16:29 Blood Blood Culture - Preliminary Laboratory WBC 6.4 X10^3/uL (3.6-10.0) 10/08/25 05:50 RBC 3.93 X10^6/uL (4.7-6.0) L 10/08/25 05:50 Hgb 9.2 g/dL (13.5-18.0) L 10/08/25 05:50 Hct 29.6 % (42.0-54.0) L 10/08/25 05:50 MCV 75.4 fL (80.0-100.0) L 10/08/25 05:50 MCH 23.5 pg (27.0-34.0) L 10/08/25 05:50 MCHC 31.1 g/dL (33.0-35.0) L 10/08/25 05:50 RDW 24.7 % (11.6-16.5) H 10/08/25 05:50 Plt Count 488 X10^3/uL (150.0-450.0) H 10/08/25 05:50 Plt Count Comment Increased (ADEQUATE) 10/08/25 05:50 MPV 7.4 fL (7.4-11.0) 10/08/25 05:50 Neut % (Auto) 64.5 % (42.0-75.0) 10/08/25 05:50 Lymph % (Auto) 19.9 % (21.0-51.0) L 10/08/25 05:50 [place] % (Auto) 9.1 % (0.0-13.0) 10/08/25 05:50 Eos % (Auto) 5.5 % (0.9-2.9) H 10/08/25 05:50 Baso % (Auto) 1.0 % (0.2-1.0) 10/08/25 05:50 Neut # (Auto) 4.1 x10^3/uL (2.2-4.8) 10/08/25 05:50 Lymph # (Auto) 1.3 X10^3/uL (1.3-2.9) 10/08/25 05:50 [place] # (Auto) 0.6 x10^3/uL (0.3-0.8) 10/08/25 05:50 Eos # (Auto) 0.4 x10^3/uL (0.0-0.2) H 10/08/25 05:50 Baso # (Auto) 0.1 X10^3/uL (0.0-0.1) 10/08/25 05:50 Absolute Nucleated RBC 0.3 /100WBC 10/08/25 05:50 Plt Morphology Comment Normal (NORMAL) 10/08/25 05:50 RBC Morphology Abnormal (NORMAL) 10/08/25 05:50 Hypochromasia 1+ A 10/08/25 05:50 Poikilocytosis Present 10/08/25 05:50 Anisocytosis 3+ A 10/08/25 05:50 Microcytosis Slight A 10/08/25 05:50 Ovalocytes Present 10/08/25 05:50 Absolute Retic 0.0735 10^6/uL 10/04/25 12:20 Percent Retic 2.41 % (0.8-2.2) H 10/04/25 12:20 Sodium 146 mmol/L (136-145) H 10/08/25 05:50 Corrected Sodium TNP 10/08/25 05:50 Potassium 3.6 mmol/L (3.5-5.1) 10/08/25 05:50 Chloride 112 mmol/L (98-107) H 10/08/25 05:50 Carbon Dioxide 26.0 mmol/L (21-32) 10/08/25 05:50 BUN 7 mg/dL (7-18) 10/08/25 05:50 Creatinine 0.89 mg/dL (0.70-1.30) 10/08/25 05:50 Est GFR (MDRD) Af Amer > 60 (>60) 10/08/25 05:50 Est GFR (MDRD) Non-Af > 60 (>60) 10/08/25 05:50 Glucose 77 mg/dL (65-99) 10/08/25 05:50 Lactic Acid 1.6 mmol/L (0.4-2.0) 10/03/25 18:37 Calcium 8.4 mg/dL (8.5-10.1) L 10/08/25 05:50 Corrected Calcium 9.9 mg/dL (8.5-10.1) 10/08/25 05:50 Magnesium 1.9 mg/dL (2.0-2.9) L 10/08/25 05:50 Iron 26 ug/dL (50-175) L 10/04/25 12:20 TIBC 221 ug/dL (250-450) L 10/04/25 12:20 Transferrin 161 mg/dL (202-364) L 10/04/25 12:20 Ferritin 18 ng/mL (26-388) L 10/04/25 12:20 Total Bilirubin 0.60 mg/dL (0.2-1.0) 10/08/25 05:50 AST 24 Units/L (15-37) 10/08/25 05:50 ALT 15 Units/L (12-78) 10/08/25 05:50 Alkaline Phosphatase 72 Units/L (46-116) 10/08/25 05:50 Creatine Kinase 83 Units/L (39-308) 10/03/25 16:29 Troponin I High Sens 10.3 ng/L (4.0-60.0) 10/03/25 16:29 B-Natriuretic Peptide 393 pg/mL (0-79) H 10/03/25 16:29 Total Protein 5.4 g/dL (6.4-8.2) L 10/08/25 05:50 Albumin 2.1 g/dL (3.4-5.0) L 10/08/25 05:50 Globulin 3.3 g/dL (2.5-4.5) 10/08/25 05:50 Albumin/Globulin Ratio 0.6 Ratio (1.1-2.1) L 10/08/25 05:50 Vitamin B12 1870 pg/mL (193-986) H 10/04/25 12:20 Folate 7.1 ng/mL (>8.6) L 10/04/25 12:20 Specimen Type Random urine 10/03/25 18: Urine Color Pale yellow (YELLOW) 10/03/25 18: Urine Appearance Clear (CLEAR) 10/03/25 18: Urine pH 6.5 (5.0 - 8.0) 10/03/25 18: Ur Specific [place] 1.015 (1.000-1.030) 10/03/25 18: Urine Protein 1+ (NEGATIVE) 10/03/25 18: Urine Glucose (UA) Negative (NEGATIVE) 10/03/25 18:26 Urine Ketones Negative (NEGATIVE) 10/03/25 18: Urine Blood 4+ (NEGATIVE) 10/03/25 18: Urine Nitrite Negative (NEGATIVE) 10/03/25 18: Urine Bilirubin Negative (NEGATIVE) 10/03/25 18: Urine Urobilinogen Normal (NORMAL) 10/03/25 18:26 Ur Leukocyte Esterase 1+ (NEGATIVE) 10/03/25 18: Urine RBC 5-10 /HPF (0-3) A 10/03/25 18: Urine WBC 3-5 /HPF (0-5) 10/03/25 18:26 Ur Squamous Epith Cells Negative /HPF (NEGATIVE) 10/03/25 18: Urine Bacteria Trace /HPF (NEGATIVE) 10/03/25 18: Ur Culture Indicated? 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) (3) Acute exacerbation of CHF (congestive heart failure): Status: Chronic Qualifiers: Heart failure type: unspecified Qualified Code(s): I50.9 - Heart failure, unspecified (4) Generalized weakness: Status: Acute (5) Atrial fibrillation: Status: Chronic Qualifiers: Atrial fibrillation type: unspecified Qualified Code(s): I48.91 - Unspecified atrial fibrillation (6) Sacral ulcer: Status: Chronic Qualifiers: Non-pressure ulcer stage: limited to breakdown of skin Qualified Code(s): 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
--- NOTE | 2025-10-08 19:53 | NOTE.SOAP ---
Soap Note Note for Day of Date of Exam: 10/08/25 Subjective Data Subjective Data: Patient admitted with GI bleed. Required 4 units of blood. EGD showed no obvious source. Patient will need colonoscopy. Hemoglobin is stable and rising at 9.2 g Objective Data Temperature: 98.0 F Pulse Rate: 113 Respiratory Rate: 17 Blood Pressure: 126/80 O2 Sat by Pulse Oximetry: 94 Objective Data: Abdomen remains benign, hemoglobin rising to 9.2 g. Trying to prevent any type of pressure situation by changing his bedding. Assessment Assessment: 1) GI bleed no obvious source as of yet. Will plan colonoscopy on Thursday. 2 pressure wounds to both lower extremities and buttocks
[2025-10-09 05:44] LABS: MEAN PLATELET VOLUME 7.0 fL (7.4-11.0); RED CELL DISTRIBUTION WIDTH 25.1 % (11.6-16.5)
[2025-10-09 06:25] LABS: PLATELET MORPHOLOGY COMMENT NORMAL (NORMAL)
[2025-10-09 06:31] LABS: COR CA(FOR HYPOALB) 9.9 mg/dL (8.5-10.1); CREATININE 0.97 mg/dL (0.70-1.30); eGFR NON BLACK RACES > 60 (>60)
--- NOTE | 2025-10-09 10:21 | PCM.PROG ---
Progress Note Progress Note for Day of Date of Exam: 10/09/25 Subjective Subjective: Patient seen at bedside, no acute events overnight. He has been more agitated and calling out. Nurse found him naked last night with stool smeared all over. He will be starting colon prep today for colonoscopy tomorrow. Hgb has been stable. He remains on IV antibiotics for sacral wound. Labs/imaging reviewed: - WBC 8.2 Hgb 8.9 Plt 444 K 3.6 Cr 0.97 - Wound culture reviewed Plan: Continue current medications. Continue IV meropenem. Monitor hemoglobin. Continue wound care as per surgery. Starting colon prep today for possible colonoscopy tomorrow. Clear liquid diet. Continue home medications. Replace electrolytes as per protocol. Patient will need rehab placement. CM to send out referrals today. PT/OT. Monitor a.m. labs and imaging. Past Medical Family Social History Allergies: Allergies No Known Drug Allergies Allergy (Verified 10/03/25 16:26) Vital Signs and I&O's Vital Signs: Vital Signs Temperature 98.0 F Temperature 98.4 F Pulse Rate [Left Brachial] 97 Pulse Rate [Left Brachial] 113 Respiratory Rate 18 Respiratory Rate 17 Respiratory Rate 20 Blood Pressure [Right Arm] 124/79 Blood Pressure [Right Arm] 115/74 O2 Sat by Pulse Oximetry 95 O2 Sat by Pulse Oximetry 100 O2 Sat by Pulse Oximetry 95 Intake and Output: Intake & Output 10/06/25 10/07/25 10/08/25 10/09/25 23:59 23:59 23:59 23:59 Intake Total 1399 / 1399 2402 / 2402 1070 / 1070 0 / 0 Output Total 500 / 500 400 / 400 Balance 899 / 899 2402 / 2402 670 / 670 0 / 0 Physical Exam Oriented: Not Oriented and Unable to test (Patient would not answer questions) Eyes: Normal Ear: Normal Nose: Normal Throat: Normal Respiratory: Diminished Cardiovascular: Normal Auscultation: Bowel Sounds: Normal Tenderness: Normal Skin: Other (Maceration of the buttocks bilaterally with superficial ulceration of the right buttock and multiple areas into the subdermal layers. No active bleeding) Musculoskeletal: negative Normal (Patient has not been ambulatory for many months) Psychiatric: Other (Difficult to test) Mood Description: Calm Affect: Depressed Speech Pattern: Clear and Delayed Laboratory and Diagnostics 10/09/25 05:20 10/09/25 05:20 Labs: 10/03/25 16:30 Blood Blood Culture - Final 10/03/25 16:29 Blood Blood Culture - Final 10/03/25 16:58 Sacral Wound Gram Stain - Final 10/03/25 16:58 Sacral Wound Culture - Final Acinetobacter Baumanii/Haemoly Pseudomonas Aeruginosa Proteus Mirabilis Laboratory WBC 8.2 X10^3/uL (3.6-10.0) 10/09/25 05:20 RBC 3.86 X10^6/uL (4.7-6.0) L 10/09/25 05:20 Hgb 8.9 g/dL (13.5-18.0) L 10/09/25 05:20 Hct 28.9 % (42.0-54.0) L 10/09/25 05:20 MCV 74.7 fL (80.0-100.0) L 10/09/25 05:20 MCH 23.1 pg (27.0-34.0) L 10/09/25 05:20 MCHC 31.0 g/dL (33.0-35.0) L 10/09/25 05:20 RDW 25.1 % (11.6-16.5) H 10/09/25 05:20 Plt Count 444 X10^3/uL (150.0-450.0) 10/09/25 05:20 Plt Count Comment Adequate (ADEQUATE) 10/09/25 05:20 MPV 7.0 fL (7.4-11.0) L 10/09/25 05:20 Neut % (Auto) 73.4 % (42.0-75.0) 10/09/25 05:20 Lymph % (Auto) 13.2 % (21.0-51.0) L 10/09/25 05:20 [place] % (Auto) 9.3 % (0.0-13.0) 10/09/25 05:20 Eos % (Auto) 3.4 % (0.9-2.9) H 10/09/25 05:20 Baso % (Auto) 0.7 % (0.2-1.0) 10/09/25 05:20 Neut # (Auto) 6.0 x10^3/uL (2.2-4.8) H 10/09/25 05:20 Lymph # (Auto) 1.1 X10^3/uL (1.3-2.9) L 10/09/25 05:20 [place] # (Auto) 0.8 x10^3/uL (0.3-0.8) 10/09/25 05:20 Eos # (Auto) 0.3 x10^3/uL (0.0-0.2) H 10/09/25 05:20 Baso # (Auto) 0.1 X10^3/uL (0.0-0.1) 10/09/25 05:20 Absolute Nucleated RBC 0.2 /100WBC 10/09/25 05:20 Plt Morphology Comment Normal (NORMAL) 10/09/25 05:20 RBC Morphology Abnormal (NORMAL) 10/09/25 05:20 Hypochromasia 1+ A 10/09/25 05:20 Poikilocytosis Slight A 10/09/25 05:20 Anisocytosis 3+ A 10/09/25 05:20 Microcytosis Slight A 10/09/25 05:20 Ovalocytes 1+ A 10/09/25 05:20 Absolute Retic 0.0735 10^6/uL 10/04/25 12:20 Percent Retic 2.41 % (0.8-2.2) H 10/04/25 12:20 Sodium 146 mmol/L (136-145) H 10/09/25 05:20 Corrected Sodium TNP 10/09/25 05:20 Potassium 3.6 mmol/L (3.5-5.1) 10/09/25 05:20 Chloride 111 mmol/L (98-107) H 10/09/25 05:20 Carbon Dioxide 27.1 mmol/L (21-32) 10/09/25 05:20 BUN 8 mg/dL (7-18) 10/09/25 05:20 Creatinine 0.97 mg/dL (0.70-1.30) 10/09/25 05:20 Est GFR (MDRD) Af Amer > 60 (>60) 10/09/25 05:20 Est GFR (MDRD) Non-Af > 60 (>60) 10/09/25 05:20 Glucose 91 mg/dL (65-99) 10/09/25 05:20 Lactic Acid 1.6 mmol/L (0.4-2.0) 10/03/25 18:37 Calcium 8.1 mg/dL (8.5-10.1) L 10/09/25 05:20 Corrected Calcium 9.9 mg/dL (8.5-10.1) 10/09/25 05:20 Magnesium 1.9 mg/dL (2.0-2.9) L 10/08/25 05:50 Iron 26 ug/dL (50-175) L 10/04/25 12:20 TIBC 221 ug/dL (250-450) L 10/04/25 12:20 Transferrin 161 mg/dL (202-364) L 10/04/25 12:20 Ferritin 18 ng/mL (26-388) L 10/04/25 12:20 Total Bilirubin 0.50 mg/dL (0.2-1.0) 10/09/25 05:20 AST 21 Units/L (15-37) 10/09/25 05:20 ALT 10 Units/L (12-78) L 10/09/25 05:20 Alkaline Phosphatase 68 Units/L (46-116) 10/09/25 05:20 Creatine Kinase 83 Units/L (39-308) 10/03/25 16:29 Troponin I High Sens 10.3 ng/L (4.0-60.0) 10/03/25 16:29 B-Natriuretic Peptide 393 pg/mL (0-79) H 10/03/25 16:29 Total Protein 4.9 g/dL (6.4-8.2) L 10/09/25 05:20 Albumin 1.8 g/dL (3.4-5.0) L 10/09/25 05:20 Globulin 3.1 g/dL (2.5-4.5) 10/09/25 05:20 Albumin/Globulin Ratio 0.6 Ratio (1.1-2.1) L 10/09/25 05:20 Vitamin B12 1870 pg/mL (193-986) H 10/04/25 12:20 Folate 7.1 ng/mL (>8.6) L 10/04/25 12:20 Specimen Type Random urine 10/03/25 18:26 Urine Color Pale yellow (YELLOW) 10/03/25 18:26 Urine Appearance Clear (CLEAR) 10/03/25 18: Urine pH 6.5 (5.0 - 8.0) 10/03/25 18:26 Ur Specific [place] 1.015 (1.000-1.030) 10/03/25 18: Urine Protein 1+ (NEGATIVE) 10/03/25 18: Urine Glucose (UA) Negative (NEGATIVE) 10/03/25 18: Urine Ketones Negative (NEGATIVE) 10/03/25 18: Urine Blood 4+ (NEGATIVE) 10/03/25 18: Urine Nitrite Negative (NEGATIVE) 10/03/25 18: Urine Bilirubin Negative (NEGATIVE) 10/03/25 18: Urine Urobilinogen Normal (NORMAL) 10/03/25 18: Ur Leukocyte Esterase 1+ (NEGATIVE) 10/03/25 18: Urine RBC 5-10 /HPF (0-3) A 10/03/25 18: Urine WBC 3-5 /HPF (0-5) 10/03/25 18:26 Ur Squamous Epith Cells Negative /HPF (NEGATIVE) 10/03/25 18:26 Urine Bacteria Trace /HPF (NEGATIVE) 10/03/25 18:26 Ur Culture Indicated? 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) (3) Acute exacerbation of CHF (congestive heart failure): Status: Chronic Qualifiers: Heart failure type: unspecified Qualified Code(s): I50.9 - Heart failure, unspecified (4) Generalized weakness: Status: Acute (5) Atrial fibrillation: Status: Chronic Qualifiers: Atrial fibrillation type: unspecified Qualified Code(s): I48.91 - Unspecified atrial fibrillation (6) Sacral ulcer: Status: Chronic Qualifiers: Non-pressure ulcer stage: limited to breakdown of skin Qualified Code(s): 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
[2025-10-09] MEDS: SUPREP BOWEL PREP KIT PO NR (14:24)
--- NOTE | 2025-10-09 14:27 | NOTE.SOAP ---
Soap Note Note for Day of Date of Exam: 10/09/25 Subjective Data Subjective Data: Patient stable. Hemoglobin remained stable with no finding on EGD. Patient to start bowel prep with clear liquid diet and sure prep today. Wounds to the buttocks and posterior thighs are unchanged and do not require debridement surgically. Objective Data Temperature: 98.0 F Pulse Rate: 97 Respiratory Rate: 18 Blood Pressure: 124/79 O2 Sat by Pulse Oximetry: 100 Objective Data: Exam unchanged. Abdomen soft and benign. Presented originally with hemoglobin of 5.3. Hemoglobin stable 8.9 today Assessment Assessment: Patient now bedbound presented with hemoglobin of approximately 8.9. EGD was negative. Source unknown at this time. Patient has had dark tarry stools. Will plan colonoscopy Plan Plan: Liquid diet, bowel prep, colonoscopy tomorrow in a.m.
[2025-10-09] MEDS: RisperDAL TAB 1 MG PO SCH (17:07)
[2025-10-09] MEDS: HIBICLENS WASH EXT ONE (21:28)
[2025-10-10 05:51] LABS: MEAN PLATELET VOLUME 7.1 fL (7.4-11.0); RED CELL DISTRIBUTION WIDTH 25.1 % (11.6-16.5)
[2025-10-10 06:04] LABS: COR CA(FOR HYPOALB) 9.8 mg/dL (8.5-10.1); CREATININE 0.92 mg/dL (0.70-1.30); eGFR NON BLACK RACES > 60 (>60)
[2025-10-10 06:17] LABS: PLATELET MORPHOLOGY COMMENT NORMAL (NORMAL)
[2025-10-10] MEDS ORDERED: CONSULT PHARMACY - POTASSIUM & MAGNESIUM XX SCH (07:00)
[2025-10-10] MEDS: DIPRIVAN VIAL 20 ML ONE (07:25)
[2025-10-10] MEDS: XYLOCAINE 2 % (PLAIN) ONE (07:26)
[2025-10-10] MEDS: NS 1,000 ML IV 1,000 ML ONE (07:35)
[2025-10-10] MEDS: NS 1,000 ML IV 350 ML IV PRN (07:36)
[2025-10-10] MEDS: XYLOCAINE 2 % (PLAIN) IVP PRN (07:43)
[2025-10-10] MEDS: DIPRIVAN VIAL 160 ML IVP PRN (07:44)
[2025-10-10] MEDS: EPHEDRINE SULFATE INJ ONE (07:50)
[2025-10-10] MEDS: NEO-SYNEPHRINE INJ ONE (07:52)
[2025-10-10] MEDS: EPHEDRINE SULFATE INJ IVP PRN (07:53)
[2025-10-10] MEDS: NEO-SYNEPHRINE INJ IVP PRN (07:56)
[2025-10-10] MEDS: VASOSTRICT INJ 20 UNITS VIAL ONE (07:56)
[2025-10-10] MEDS ORDERED: NORVASC TAB 10 MG PRN (08:20)
--- NOTE | 2025-10-10 08:41 | OR.IMMED ---
IMMEDIATE POST-OP NOTE Immediate Post-Op Note Date of surgery/procedure: 10/10/25 Pre-Op Diagnosis: GI bleed Post-Op Diagnosis: right colon mass about 3 cm , highly suspicious for carcinoma Procedure: colonoscopy with multiple biopsies of right colon mass Description of Procedure: dictated Surgeon/Chemical Processing Technician: Abrahan Specimens Removed: as above Estimated Blood Loss: minimal Complications: none Progress Notes: returned to floor , findings discussed with patient's daughter in person
[2025-10-10] MEDS: D5W 1,000 ML IV 1,000 ML IV SCH (10:01)
[2025-10-10] MEDS: MAGNESIUM SULFATE 1 GRAM/100 mL PREMIX 1 G/100 ML BAG IV SCH (10:04)
[2025-10-10] MEDS: K-RIDER 10 MEQ/100 ML WATER 10 MEQ/100 ML BAG IV SCH (10:05)
--- NOTE | 2025-10-10 10:35 | PCM.PROG ---
Progress Note Progress Note for Day of Date of Exam: 10/10/25 Subjective Subjective: Patient seen at bedside, no acute events overnight. He did have colonoscopy this morning which showed a right sided colon mass concerning for malignancy. Biopsies were collected. Patient was noted to be hypotensive after the procedure and did require multiple injections. His blood pressure is 80s over 60s at this time. Labs/imaging reviewed: - WBC 6.5 hemoglobin 9.6 sodium 152 creatinine 0.92 Plan: Start hydration with D5. Monitor blood pressure closely. Hold antihypertensives. Follow surgery recommendations. Cardiology consult for cardiac clearance. Continue other home meds. Continue IV antibiotics. Continue bronchodilators, IS. Wean O2 as per protocol. Replace electrolytes as per protocol. Continue risperidone. PT/OT as tolerated. Fall precautions. Monitor AM labs/imaging. Past Medical Family Social History Allergies: Allergies No Known Drug Allergies Allergy (Verified 10/03/25 16:26) Vital Signs and I&O's Vital Signs: Vital Signs Temperature 98.0 F Pulse Rate [Left Brachial] 130 Pulse Rate 117 Respiratory Rate 20 Respiratory Rate 20 Blood Pressure [Right Arm] 128/83 O2 Sat by Pulse Oximetry 95 O2 Sat by Pulse Oximetry 98 Intake and Output: Intake & Output 10/07/25 10/08/25 10/09/25 10/10/25 23:59 23:59 23:59 23:59 Intake Total 2402 / 2402 1070 / 1070 1080 / 1080 877 / 877 Output Total 400 / 400 Balance 2402 / 2402 670 / 670 1080 / 1080 877 / 877 Physical Exam Oriented: Not Oriented and Unable to test (Patient would not answer questions) Eyes: Normal Ear: Normal Nose: Normal Throat: Normal Respiratory: Diminished Cardiovascular: Normal : Normal Auscultation: Bowel Sounds: Normal Tenderness: Normal Skin: Other (Maceration of the buttocks bilaterally with superficial ulceration of the right buttock and multiple areas into the subdermal layers. No active bleeding) Musculoskeletal: negative Normal (Patient has not been ambulatory for many months) Psychiatric: Other (Difficult to test) Mood Description: Calm Affect: Depressed Speech Pattern: Clear Laboratory and Diagnostics 10/10/25 05:28 10/10/25 05:28 Labs: 10/03/25 16:30 Blood Blood Culture - Final 10/03/25 16:29 Blood Blood Culture - Final 10/03/25 16:58 Sacral Wound Gram Stain - Final 10/03/25 16:58 Sacral Wound Culture - Final Acinetobacter Baumanii/Haemoly Pseudomonas Aeruginosa Proteus Mirabilis Laboratory WBC 6.5 X10^3/uL (3.6-10.0) 10/10/25 05:28 RBC 4.06 X10^6/uL (4.7-6.0) L 10/10/25 05:28 Hgb 9.6 g/dL (13.5-18.0) L 10/10/25 05:28 Hct 30.4 % (42.0-54.0) L 10/10/25 05:28 MCV 74.8 fL (80.0-100.0) L 10/10/25 05:28 MCH 23.6 pg (27.0-34.0) L 10/10/25 05:28 MCHC 31.6 g/dL (33.0-35.0) L 10/10/25 05:28 RDW 25.1 % (11.6-16.5) H 10/10/25 05:28 Plt Count 432 X10^3/uL (150.0-450.0) 10/10/25 05:28 Plt Count Comment Adequate (ADEQUATE) 10/10/25 05:28 MPV 7.1 fL (7.4-11.0) L 10/10/25 05:28 Neut % (Auto) 72.9 % (42.0-75.0) 10/10/25 05:28 Lymph % (Auto) 14.0 % (21.0-51.0) L 10/10/25 05:28 [place] % (Auto) 9.3 % (0.0-13.0) 10/10/25 05:28 Eos % (Auto) 3.1 % (0.9-2.9) H 10/10/25 05:28 Baso % (Auto) 0.7 % (0.2-1.0) 10/10/25 05:28 Neut # (Auto) 4.7 x10^3/uL (2.2-4.8) 10/10/25 05:28 Lymph # (Auto) 0.9 X10^3/uL (1.3-2.9) L 10/10/25 05:28 [place] # (Auto) 0.6 x10^3/uL (0.3-0.8) 10/10/25 05:28 Eos # (Auto) 0.2 x10^3/uL (0.0-0.2) 10/10/25 05:28 Baso # (Auto) 0.0 X10^3/uL (0.0-0.1) 10/10/25 05:28 Absolute Nucleated RBC 0.2 /100WBC 10/10/25 05:28 Plt Morphology Comment Normal (NORMAL) 10/10/25 05:28 RBC Morphology Abnormal (NORMAL) 10/10/25 05:28 Hypochromasia 1+ A 10/10/25 05:28 Poikilocytosis Slight A 10/10/25 05:28 Anisocytosis 3+ A 10/10/25 05:28 Microcytosis Slight A 10/10/25 05:28 Ovalocytes 1+ A 10/10/25 05:28 Absolute Retic 0.0735 10^6/uL 10/04/25 12:20 Percent Retic 2.41 % (0.8-2.2) H 10/04/25 12:20 Sodium 152 mmol/L (136-145) H* 10/10/25 05:28 Corrected Sodium TNP 10/10/25 05:28 Potassium 3.3 mmol/L (3.5-5.1) L 10/10/25 05:28 Chloride 112 mmol/L (98-107) H 10/10/25 05:28 Carbon Dioxide 28.3 mmol/L (21-32) 10/10/25 05:28 BUN 6 mg/dL (7-18) L 10/10/25 05:28 Creatinine 0.92 mg/dL (0.70-1.30) 10/10/25 05:28 Est GFR (MDRD) Af Amer > 60 (>60) 10/10/25 05:28 Est GFR (MDRD) Non-Af > 60 (>60) 10/10/25 05:28 Glucose 102 mg/dL (65-99) H 10/10/25 05:28 Lactic Acid 1.6 mmol/L (0.4-2.0) 10/03/25 18:37 Calcium 8.4 mg/dL (8.5-10.1) L 10/10/25 05:28 Corrected Calcium 9.8 mg/dL (8.5-10.1) 10/10/25 05:28 Magnesium 1.9 mg/dL (2.0-2.9) L 10/08/25 05:50 Iron 26 ug/dL (50-175) L 10/04/25 12:20 TIBC 221 ug/dL (250-450) L 10/04/25 12:20 Transferrin 161 mg/dL (202-364) L 10/04/25 12:20 Ferritin 18 ng/mL (26-388) L 10/04/25 12:20 Total Bilirubin 0.50 mg/dL (0.2-1.0) 10/10/25 05:28 AST 16 Units/L (15-37) 10/10/25 05:28 ALT 15 Units/L (12-78) 10/10/25 05:28 Alkaline Phosphatase 74 Units/L (46-116) 10/10/25 05:28 Creatine Kinase 83 Units/L (39-308) 10/03/25 16:29 Troponin I High Sens 10.3 ng/L (4.0-60.0) 10/03/25 16:29 B-Natriuretic Peptide 393 pg/mL (0-79) H 10/03/25 16:29 Total Protein 5.5 g/dL (6.4-8.2) L 10/10/25 05:28 Albumin 2.2 g/dL (3.4-5.0) L 10/10/25 05:28 Globulin 3.3 g/dL (2.5-4.5) 10/10/25 05:28 Albumin/Globulin Ratio 0.7 Ratio (1.1-2.1) L 10/10/25 05:28 Vitamin B12 1870 pg/mL (193-986) H 10/04/25 12:20 Folate 7.1 ng/mL (>8.6) L 10/04/25 12:20 Specimen Type Random urine 10/03/25 18: Urine Color Pale yellow (YELLOW) 10/03/25 18: Urine Appearance Clear (CLEAR) 10/03/25 18: Urine pH 6.5 (5.0 - 8.0) 10/03/25 18: Ur Specific [place] 1.015 (1.000-1.030) 10/03/25 18: Urine Protein 1+ (NEGATIVE) 10/03/25 18:26 Urine Glucose (UA) Negative (NEGATIVE) 10/03/25 18: Urine Ketones Negative (NEGATIVE) 10/03/25 18: Urine Blood 4+ (NEGATIVE) 10/03/25 18:26 Urine Nitrite Negative (NEGATIVE) 10/03/25 18: Urine Bilirubin Negative (NEGATIVE) 10/03/25 18:26 Urine Urobilinogen Normal (NORMAL) 10/03/25 18:26 Ur Leukocyte Esterase 1+ (NEGATIVE) 10/03/25 18:26 Urine RBC 5-10 /HPF (0-3) A 10/03/25 18: Urine WBC 3-5 /HPF (0-5) 10/03/25 18:26 Ur Squamous Epith Cells Negative /HPF (NEGATIVE) 10/03/25 18: Urine Bacteria Trace /HPF (NEGATIVE) 10/03/25 18:26 Ur Culture Indicated? No/not indicated 10/03/25 18:26 Stl Occult Blood (IFOB) Positive (NEGATIVE) A 10/04/25 16:30 Random Vancomycin 19.0 ug/mL 10/05/25 21:42 Blood Type O NEGATIVE 10/03/25 17:24 Antibody Screen Negative 10/03/25 17:24 Crossmatch See Detail 10/03/25 17:24 Plan (1) GI bleed: Status: Acute Qualifiers: GI bleed type/associated pathology: melena Qualified Code(s): K92.1 - Melena (2) Anemia: Status: Acute Qualifiers: Anemia type: iron deficiency Iron deficiency anemia type: chronic blood loss Qualified Code(s): D50.0 - Iron deficiency anemia secondary to blood loss (chronic) (3) Acute exacerbation of CHF (congestive heart failure): Status: Chronic Qualifiers: Heart failure type: unspecified Qualified Code(s): I50.9 - Heart failure, unspecified (4) Generalized weakness: Status: Acute (5) Atrial fibrillation: Status: Chronic Qualifiers: Atrial fibrillation type: unspecified Qualified Code(s): I48.91 - Unspecified atrial fibrillation (6) Sacral ulcer: Status: Chronic Qualifiers: Non-pressure ulcer stage: limited to breakdown of skin Qualified Code(s): L98.421 - 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
--- NOTE | 2025-10-10 10:57 | DR.OPNOTE ---
OP NOTE Pre-Op Diagnosis: GI bleeding with recent negative upper endoscopy Post-Op Diagnosis: Right colon mass, suspicious for carcinoma, approximate 3 cm in diameter Procedure Date Date Of Procedure: 10/10/25 Procedure: PROCEDURE: Flexible colonoscopy with multiple biopsies of right sided colon mass, 3 cm in diameter suspicious for carcinoma NARRATIVE: Patient taken to the operative suite and placed in the left lateral position and given IV sedation supervised by myself. After timeout for the procedure obtained, flexible colonoxcope introduced into the anus taken and all the way to the cecum without difficulty. It should be noted we found a mass in the right colon above the cecum approximately 3 cm in diameter which was friable and did bleed some after we biopsied it multiple times. I was unable to place ink around the mass due to the needle not reaching the area. On withdrawing the scope noted the patietn was note to have some mild sigmoid diverticulosis. Patient tolerated this well. Type of Anesthesia: Local (MAC anesthesia) Findings: Mild left sigmoid diverticulosis, 3 cm mass in the right colon above the cecum, biopsies obtained. Suspicious for carcinoma Type of Fluids Used:: Lactated Ringers EBL: minimal after biopsies , mass was friable Complications:: none Needle/Sponge Count:: correct Disposition/Condition: Pt. tolerated procedure without difficulty. Taken to the floor in stable condition.
--- NOTE | 2025-10-10 11:47 | DR.CONSULT ---
CONSULT Consultation for Day of: Date: 10/10/25 Chief Complaint Chief Complaint: preop clearance Allergies Allergies Allergy/AdvReac Type Severity Reaction Status Date / Time No Known Drug Allergies Allergy Verified 10/03/25 16:26 History of Present Illness History of Present Illness: 74 yo male- gi bleed 07/03 at [facility]- echo: ok lv but pa 60- trops elevated at 70-80 but very anemic- no stress test done- very inactive/does not walk last 3 months- has sacral breakdown- has cafib on eliquis but held due to cont anemia- colo today revealed mass concerning for cancer- colo complicated by hypotension requiring presssors- EKG : afib/new inf q waves- echo today: apical wall motion abnl not seen 07/03- also pa 65 mm hg- son in law denies SWETHA Past Medical History Past Medical History: CVA, Dyslipidemia, GERD, Hypertension and Hypothyroidism Additional Medical History: A-FIB, HERNIA, HIGH CHOLESTEROL Past Surgical History Surgical History: Tonsillectomy Family History Family Medical History: Diabetes Mellitus, Coronary Artery Disease and Hypertension Social History Type of Tobacco Use: None Alcohol Use: None Medications Home Medications: No Known Drug Allergies Allergy (Verified 10/03/25 16:26) CONTINUE taking the following medications apixaban 2.5 mg tablet (Eliquis) 2.5 mg PO BID 10/03/25 [History] atorvastatin 20 mg tablet 20 mg PO QDAY 10/03/25 [History] bumetanide 1 mg tablet 1 mg PO QDAY 10/03/25 [History] furosemide 40 mg tablet 40 mg PO QDAY 10/03/25 [History] pantoprazole 40 mg tablet,delayed release 40 mg PO BID 10/03/25 [History] spironolactone 25 mg tablet 25 mg PO QDAY 10/03/25 [History] sucralfate 1 gram tablet 1 g PO QID 10/03/25 [History] terbinafine HCl 250 mg tablet 250 mg PO QDAY 10/03/25 [History] Physical Exam Vital Signs: Vital Signs Temperature 97.7 F Temperature 97.5 F Temperature 98.0 F Temperature 97.7 F Temperature 97.5 F Temperature 98.0 F Pulse Rate [Left Brachial] 97 Pulse Rate [Left Brachial] 81 Pulse Rate [Left Brachial] 111 Pulse Rate [Left Brachial] 88 Pulse Rate [Left Brachial] 112 Pulse Rate [Left Brachial] 130 Pulse Rate 117 Respiratory Rate 16 Respiratory Rate 14 Respiratory Rate 20 Respiratory Rate 12 Respiratory Rate 14 Respiratory Rate 14 Respiratory Rate 20 Blood Pressure [Right Arm] 100/58 Blood Pressure [Right Arm] 93/55 Blood Pressure [Right Arm] 90/57 Blood Pressure [Right Arm] 89/60 Blood Pressure [Right Arm] 88/55 Blood Pressure [Right Arm] 128/83 O2 Sat by Pulse Oximetry 97 O2 Sat by Pulse Oximetry 98 O2 Sat by Pulse Oximetry 96 O2 Sat by Pulse Oximetry 97 O2 Sat by Pulse Oximetry 95 O2 Sat by Pulse Oximetry 98 O2 Sat by Pulse Oximetry 98 sleeping junky breath sounds ireg irreg sacral wound mild edema legs Labs: hct 30 wbc 6.5 alb 1.8-2.2 cxr : b infiltrates/big heart ekg: afib /new inf qs echo: apical wall motion abnl not seen 07/03- afib- severe pulm htn 63 Plan (1) GI bleed: Status: Acute Qualifiers: GI bleed type/associated pathology: melena Qualified Code(s): K92.1 - Melena (2) Anemia: Status: Acute Qualifiers: Anemia type: iron deficiency Iron deficiency anemia type: chronic blood loss Qualified Code(s): D50.0 - Iron deficiency anemia secondary to blood loss (chronic) (3) Atrial fibrillation: Status: Chronic Qualifiers: Atrial fibrillation type: unspecified Qualified Code(s): I48.91 - Unspecified atrial fibrillation (4) Sacral ulcer: Status: Chronic Qualifiers: Non-pressure ulcer stage: limited to breakdown of skin Qualified C ode(s): L98.421 - 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 (5) Pneumonia: Status: Acute Qualifiers: Pneumonia type: due to unspecified organism Laterality: bilateral Lung location: unspecified part of lung Qualified Code(s): J18.9 - Pneumonia, unspecified organism (6) Mass of colon: Status: Acute (7) Pulmonary hypertension: Status: Acute (8) Low serum albumin: Status: Acute (9) Preop cardiovascular exam: Status: Acute Narrative Support Text: possible recent mi/afib/chf/B pna/low albumin/inactive/severe pulmonary hypertension/confused/combative/hypotension during colo requiring pressors Plan: extremely high risk- needs tertiary care center with intensivists/anesthesia capable of dealing with pulm htn- will do badly- anything else can be done beside surgery
[2025-10-10] MEDS: K-DUR TAB 20 MEQ PO NR (12:46)
[2025-10-10] MEDS ORDERED: READI-CAT 2 ONE (15:28)
[2025-10-10] MEDS: KLOR-CON 10 MEQ TAB PO NR (16:33)
[2025-10-10] MEDS: OMNIPAQUE 350 mg/mL 100 mL BTL IVP NR (18:07)
[2025-10-10] MEDS ORDERED: NS 100 ML IV 100 ML ONE (18:09)
[2025-10-10] MEDS ORDERED: OMNIPAQUE 350 mg/mL 100 mL BTL 100 ML ONE (18:09)
--- NOTE | 2025-10-10 23:08 | CT ---
EXAMINATION: ABDCMEN/PELVIS WITH CON HISTORY: colon mass; colon mass COMPARISON: None. TECHNIQUE: Contiguous axial CT images of the abdomen and pelvis following oral and IV contrast. Images reviewed in the axial imaging plane with reformatted sagittal and coronal images.The above CT scan was done with automated exposure control and the mA and kV was adjusted to obtain quality images according to patient size. FINDINGS: There is a nonspecific soft tissue mass density along the proximal ascending colon right lower abdomen measuring 3.5 by 2.6 by 2.6 cm central density 36 Hounsfield units potential neoplasm. Occasional colonic diverticuli. The small bowel loops are normal caliber. Small amount of oral contrast within the stomach. The liver measures 18 x 16 by 16 cm. Mild distention of the gallbladder. No bile duct dilatation. The pancreas is mildly atrophic. No pancreatic duct dilatation. The spleen measures 13 x 12 x 5 cm. There are multiple hypodense lesions scattered within the spleen the largest measuring 1.6 cm central density 42 Hounsfield units. Scattered arterial vascular calcifications aorta and branch vessels. Adrenal glands are normal size. Kidneys normal size and position. No hydronephrosis. Urinary bladder mildly distended with urine. There is a 0.4 cm calcification along the left posterior wall of the urinary bladder possible urinary bladder stone versus calcification within the wall of the urinary bladder. Seminal vesicles are normal size. Prostate gland measures 4.3 cm transverse dimension. Mild spondylosis. 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 Limited images through lower chest demonstrate large low-density bilateral pleural effusions in the dependent posterior pleural spaces. Coronary artery calcifications. IMPRESSION: Nonspecific soft tissue mass density along the proximal ascending colon right lower abdomen potential neoplasm. Occasional colonic diverticuli. Nonspecific multiple hypodense lesions scattered throughout the spleen. Recommend follow-up ultrasound of the spleen. Mild atrophy of the pancreas. Large low-density bilateral pleural effusions. THIS IS AN ELECTRONICALLY VERIFIED FINAL REPORT 10/10/2025 11:04 PM - Electronically signed by Gely To MD
[2025-10-11 06:15] LABS: MEAN PLATELET VOLUME 7.2 fL (7.4-11.0); RED CELL DISTRIBUTION WIDTH 25.5 % (11.6-16.5)
[2025-10-11 06:30] LABS: COR CA(FOR HYPOALB) 9.7 mg/dL (8.5-10.1); CREATININE 0.81 mg/dL (0.70-1.30); eGFR NON BLACK RACES > 60 (>60)
[2025-10-11 06:58] LABS: PLATELET MORPHOLOGY COMMENT NORMAL (NORMAL)
[2025-10-11] MEDS ORDERED: CONSULT PHARMACY - POTASSIUM & MAGNESIUM XX SCH (07:00)
[2025-10-11] MEDS ORDERED: K-RIDER 10 MEQ/100 ML WATER 10 MEQ/100 ML BAG IV SCH (09:00)
[2025-10-11] MEDS: MAGNESIUM SULFATE 1 GRAM/100 mL PREMIX 1 G/100 ML BAG IV SCH (09:53)
[2025-10-11] MEDS: MAG-OX TAB PO NR (10:40)
[2025-10-11 13:03] VITALS: BP 131/78; PULSE 123; RESP 16; TEMP 98.1; O2SAT 97
--- NOTE | 2025-10-11 20:12 | NOTE.SOAP ---
Soap Note Note for Day of Date of Exam: 10/11/25 Subjective Data Subjective Data: Patient admitted with GI bleed. Patient is bed ridden and has colonoscopy showing a suspicious mass in the right colon. Biopsies pending. Patient in consultation by Dr. Perez cardiology felt that he is high risk and to be done at tertiary care center at this point the family decided to place him in hospice. Objective Data Temperature: 98.1 F Pulse Rate: 123 Respiratory Rate: 16 Blood Pressure: 131/78 O2 Sat by Pulse Oximetry: 97 Objective Data: Physical exam unchanged. Hemoglobin was 8.8 Assessment Assessment: Patient with declining health. Superficial decubitus wounds to buttocks and both posterior thighs. GI bleed and right colon mass suspicious for carcinoma. Biopsies pending Plan Plan: Patient to be discharged with hospice. Pathology pending and they will decide how they want to proceed next week
--- NOTE | 2025-10-12 16:21 | W.DIS.FURT ---
Summary of Discharge Discharge Summary of Date Date of Exam: 10/11/25 Admission Date Date of Admission: 10/03/25 Admission Diagnosis Patient Problems (Updated 10/10/25 @ 11:43 by SHAE NGUYỄN MD) Hypomagnesemia (Acute) E83.42 Hypokalemia (Acute) E87.6 GI bleed (Acute) K92.2 Anemia (Acute) D64.9 Sepsis (Acute) A41.9 Atrial fibrillation (Chronic) I48.91 Hospital Course: Patient is a 74-year-old male with a past medical history of CVA, atrial fibrillation, hypertension, hypothyroidism, anemia and limited mobility presented with worsening lower extremity edema and weakness. ER workup included labs which showed hemoglobin 5.3 potassium 3.2, elevated BNP, negative troponin. Chest x-ray and UA were negative. Patient had elevated lactic acid at 3.9. He was slightly hypotensive on admission. He was started on gentle hydration and IV antibiotics. He also has a sacral wound. Patient was admitted at [facility] in June for GI bleed and underwent further workup including EGD. He was found to have multiple ulcers with no active bleeding. He was supposed to be scheduled for colonoscopy outpatient but has not been able to do so. Family states patient is pretty much bedbound and requires assistance. He has been having dark tarry stools for a while. He takes Eliquis for atrial fibrillation and history of CVA. He received a total of 4 units of PRBCs to maintain his hemoglobin above 8. Surgery was consulted for anemia and sacral wound. He did undergo EGD which did not show any active bleeding. His labs are monitored daily and electrolytes replaced as needed. He was agitated and restless, pulling IV access. He was started on risperidone for behavioral management. He continued to receive wound care for sacral ulcer. He remained on IV antibiotics, adjusted based on cultures. He did undergo colonoscopy which showed mass in the ascending colon that was concerning for malignancy. Patient was severely hypotensive after the procedure and did require multiple pressor doses to maintain blood pressure. His blood pressure remained stable with fluids after the procedure. CT abdomen pelvis was also done which showed some lesions of the spleen colon mass concerning for malignancy. Cardiology was consulted for cardiac clearance for possible surgical removal of colon mass. Echo was done, see scanned results. Patient was noted to have wall motion abnormalities and severe pulmonary hypertension. Due to patient's cardiac history, and active lifestyle and other risk factors, patient was deemed high risk for surgical intervention. This was explained to the patient and family in detail. Family elected to decline surgery and go with hospice care. Patient was stable for discharge home on home hospice. He will be notified with biopsy results when available. Time spent for clinical assessment, reviewing labs/imaging, physical exam, decision making and documentation greater than 45 mins. Vital Signs: Vital Signs (72 hours) 10/08/25 10:40 10/08/25 12:00 10/08/25 16:00 Temperature 97.8 F 98.0 F Pulse Rate Pulse Rate [Left Brachial] 110 H 113 H Respiratory Rate 18 17 Blood Pressure Blood Pressure [Left Arm] 107/65 126/80 Blood Pressure [Right Arm] O2 Sat by Pulse Oximetry 99 94 L Oxygen Delivery Method Room Air Room Air Room Air Oxygen Flow Rate FIO2% 10/08/25 19:00 10/08/25 19:53 10/08/25 20:00 Temperature 98.0 F 98.1 F Pulse Rate 113 H Pulse Rate [Left Brachial] 110 H Respiratory Rate 17 17 Blood Pressure 126/80 Blood Pressure [Left Arm] 133/81 Blood Pressure [Right Arm] O2 Sat by Pulse Oximetry 94 L 94 L Oxygen Delivery Method Room Air Oxygen Flow Rate FIO2% 10/08/25 21:24 10/08/25 21:34 10/08/25 22:24 Temperature Pulse Rate Pulse Rate [Left Brachial] Respiratory Rate 20 20 Blood Pressure Blood Pressure [Left Arm] Blood Pressure [Right Arm] O2 Sat by Pulse Oximetry Oxygen Delivery Method Room Air Oxygen Flow Rate FIO2% 10/09/25 02:48 10/09/25 04:00 10/09/25 07:00 Temperature 98.4 F Pulse Rate Pulse Rate [Left Brachial] 113 H Respiratory Rate 20 17 Blood Pressure Blood Pressure [Left Arm] Blood Pressure [Right Arm] 115/74 O2 Sat by Pulse Oximetry 95 Oxygen Delivery Method Room Air Room Air Oxygen Flow Rate FIO2% 10/09/25 07:00 10/09/25 08:00 10/09/25 08:42 Temperature 98.0 F Pulse Rate Pulse Rate [Left Brachial] 97 H Respiratory Rate 18 Blood Pressure Blood Pressure [Left Arm] Blood Pressure [Right Arm] 124/79 O2 Sat by Pulse Oximetry 100 95 Oxygen Delivery Method Room Air Room Air Oxygen Flow Rate FIO2% 10/09/25 09:32 10/09/25 10:08 10/09/25 12:00 Temperature 97.6 F Pulse Rate Pulse Rate [Left Brachial] 93 H Respiratory Rate 18 18 Blood Pressure Blood Pressure [Left Arm] Blood Pressure [Right Arm] 107/58 O2 Sat by Pulse Oximetry 99 Oxygen Delivery Method Room Air Room Air Oxygen Flow Rate FIO2% 10/09/25 14:27 10/09/25 16:00 10/09/25 19:00 Temperature 98.0 F 97.6 F Pulse Rate 97 H Pulse Rate [Left Brachial] 86 Respiratory Rate 18 17 Blood Pressure 124/79 Blood Pressure [Left Arm] Blood Pressure [Right Arm] 118/74 O2 Sat by Pulse Oximetry 100 96 Oxygen Delivery Method Room Air Room Air Oxygen Flow Rate FIO2% 10/09/25 20:00 10/09/25 20:56 10/09/25 21:07 Temperature 97.6 F Pulse Rate Pulse Rate [Left Brachial] 120 H Respiratory Rate 16 16 Blood Pressure Blood Pressure [Left Arm] Blood Pressure [Right Arm] 142/86 O2 Sat by Pulse Oximetry 97 Oxygen Delivery Method Room Air Room Air Oxygen Flow Rate FIO2% 10/09/25 22:07 10/09/25 23:19 10/10/25 03:41 Temperature 98.6 F 98.0 F Pulse Rate Pulse Rate [Left Brachial] 101 H 130 H Respiratory Rate 16 21 20 Blood Pressure Blood Pressure [Left Arm] Blood Pressure [Right Arm] 109/66 128/83 O2 Sat by Pulse Oximetry 99 98 Oxygen Delivery Method Room Air Room Air Oxygen Flow Rate FIO2% 10/10/25 07:32 10/10/25 08:30 10/10/25 08:32 Temperature 97.5 F L Pulse Rate 117 H Pulse Rate [Left Brachial] 112 H Respiratory Rate 14 Blood Pressure Blood Pressure [Left Arm] Blood Pressure [Right Arm] 88/55 O2 Sat by Pulse Oximetry 98 95 Oxygen Delivery Method Room Air Room Air Oxygen Flow Rate FIO2% 10/10/25 08:35 10/10/25 08:45 10/10/25 09:00 Temperature 97.7 F 98.0 F Pulse Rate Pulse Rate [Left Brachial] 88 111 H Respiratory Rate 14 12 Blood Pressure Blood Pressure [Left Arm] Blood Pressure [Right Arm] 89/60 90/57 O2 Sat by Pulse Oximetry 97 96 Oxygen Delivery Method Nasal Cannula Room Air Room Air Oxygen Flow Rate 3 FIO2% 32 10/10/25 09:13 10/10/25 09:15 10/10/25 09:30 Temperature 97.5 F L 97.7 F Pulse Rate Pulse Rate [Left Brachial] 81 97 H Respiratory Rate 20 14 16 Blood Pressure Blood Pressure [Left Arm] Blood Pressure [Right Arm] 93/55 100/58 O2 Sat by Pulse Oximetry 98 97 Oxygen Delivery Method Room Air Room Air Oxygen Flow Rate FIO2% 10/10/25 10:13 10/10/25 12:50 10/10/25 16:00 Temperature 97.6 F 97.6 F Pulse Rate Pulse Rate [Left Brachial] 106 H 104 H Respiratory Rate 18 17 17 Blood Pressure Blood Pressure [Left Arm] Blood Pressure [Right Arm] 124/74 134/96 O2 Sat by Pulse Oximetry 97 100 Oxygen Delivery Method Room Air Room Air Oxygen Flow Rate FIO2% 10/10/25 19:00 10/10/25 20:00 10/10/25 21:11 Temperature 97.9 F Pulse Rate Pulse Rate [Left Brachial] 126 H Respiratory Rate 18 Blood Pressure Blood Pressure [Left Arm] Blood Pressure [Right Arm] 113/56 O2 Sat by Pulse Oximetry 100 Oxygen Delivery Method Room Air Room Air Room Air Oxygen Flow Rate FIO2% 10/10/25 21:11 10/10/25 21:24 10/10/25 22:24 Temperature Pulse Rate 111 H Pulse Rate [Left Brachial] Respiratory Rate 18 18 Blood Pressure Blood Pressure [Left Arm] Blood Pressure [Right Arm] O2 Sat by Pulse Oximetry 98 Oxygen Delivery Method Oxygen Flow Rate FIO2% 10/10/25 23:59 10/11/25 04:00 10/11/25 07:00 Temperature 98.2 F 97.3 F L Pulse Rate Pulse Rate [Left Brachial] 120 H 88 Respiratory Rate 19 21 Blood Pressure Blood Pressure [Left Arm] Blood Pressure [Right Arm] 133/71 133/62 O2 Sat by Pulse Oximetry 96 96 Oxygen Delivery Method Room Air Room Air Room Air Oxygen Flow Rate FIO2% 10/11/25 08:00 10/11/25 08:57 10/11/25 09:44 Temperature 97.7 F Pulse Rate Pulse Rate [Left Brachial] 106 H Respiratory Rate 16 18 Blood Pressure Blood Pressure [Left Arm] Blood Pressure [Right Arm] 99/59 O2 Sat by Pulse Oximetry 99 Oxygen Delivery Method Room Air Room Air Oxygen Flow Rate FIO2% Labs: Laboratory Last Values WBC 5.0 X10^3/uL (3.6-10.0) 10/11/25 05:52 RBC 3.71 X10^6/uL (4.7-6.0) L 10/11/25 05:52 Hgb 8.8 g/dL (13.5-18.0) L 10/11/25 05:52 Hct 27.4 % (42.0-54.0) L 10/11/25 05:52 MCV 73.9 fL (80.0-100.0) L 10/11/25 05:52 MCH 23.6 pg (27.0-34.0) L 10/11/25 05:52 MCHC 31.9 g/dL (33.0-35.0) L 10/11/25 05:52 RDW 25.5 % (11.6-16.5) H 10/11/25 05:52 Plt Count 368 X10^3/uL (150.0-450.0) 10/11/25 05:52 Plt Count Comment Adequate (ADEQUATE) 10/11/25 05:52 MPV 7.2 fL (7.4-11.0) L 10/11/25 05:52 Neut % (Auto) 64.0 % (42.0-75.0) 10/11/25 05:52 Lymph % (Auto) 18.1 % (21.0-51.0) L 10/11/25 05:52 [place] % (Auto) 10.1 % (0.0-13.0) 10/11/25 05:52 Eos % (Auto) 6.9 % (0.9-2.9) H 10/11/25 05:52 Baso % (Auto) 0.9 % (0.2-1.0) 10/11/25 05:52 Neut # (Auto) 3.2 x10^3/uL (2.2-4.8) 10/11/25 05:52 Lymph # (Auto) 0.9 X10^3/uL (1.3-2.9) L 10/11/25 05:52 [place] # (Auto) 0.5 x10^3/uL (0.3-0.8) 10/11/25 05:52 Eos # (Auto) 0.4 x10^3/uL (0.0-0.2) H 10/11/25 05:52 Baso # (Auto) 0.0 X10^3/uL (0.0-0.1) 10/11/25 05:52 Absolute Nucleated RBC 0.1 /100WBC 10/11/25 05:52 Plt Morphology Comment Normal (NORMAL) 10/11/25 05:52 RBC Morphology Abnormal (NORMAL) 10/11/25 05:52 Hypochromasia 1+ A 10/11/25 05:52 Poikilocytosis Slight A 10/11/25 05:52 Anisocytosis 3+ A 10/11/25 05:52 Microcytosis Slight A 10/11/25 05:52 Ovalocytes 1+ A 10/11/25 05:52 Absolute Retic 0.0735 10^6/uL 10/04/25 12:20 Percent Retic 2.41 % (0.8-2.2) H 10/04/25 12:20 Sodium 143 mmol/L (136-145) 10/11/25 05:52 Corrected Sodium TNP 10/11/25 05:52 Potassium 3.8 mmol/L (3.5-5.1) 10/11/25 05:52 Chloride 109 mmol/L (98-107) H 10/11/25 05:52 Carbon Dioxide 28.6 mmol/L (21-32) 10/11/25 05:52 BUN 5 mg/dL (7-18) L 10/11/25 05:52 Creatinine 0.81 mg/dL (0.70-1.30) 10/11/25 05:52 Est GFR (MDRD) Af Amer > 60 (>60) 10/11/25 05:52 Est GFR (MDRD) Non-Af > 60 (>60) 10/11/25 05:52 Glucose 86 mg/dL (65-99) 10/11/25 05:52 Lactic Acid 1.6 mmol/L (0.4-2.0) 10/03/25 18:37 Calcium 8.0 mg/dL (8.5-10.1) L 10/11/25 05:52 Corrected Calcium 9.7 mg/dL (8.5-10.1) 10/11/25 05:52 Magnesium 1.8 mg/dL (2.0-2.9) L 10/11/25 05:52 Iron 26 ug/dL (50-175) L 10/04/25 12:20 TIBC 221 ug/dL (250-450) L 10/04/25 12:20 Transferrin 161 mg/dL (202-364) L 10/04/25 12:20 Ferritin 18 ng/mL (26-388) L 10/04/25 12:20 Total Bilirubin 0.50 mg/dL (0.2-1.0) 10/11/25 05:52 AST 15 Units/L (15-37) 10/11/25 05:52 ALT 9 Units/L (12-78) L 10/11/25 05:52 Alkaline Phosphatase 71 Units/L (46-116) 10/11/25 05:52 Creatine Kinase 83 Units/L (39-308) 10/03/25 16:29 Troponin I High Sens 10.3 ng/L (4.0-60.0) 10/03/25 16:29 B-Natriuretic Peptide 393 pg/mL (0-79) H 10/03/25 16:29 Total Protein 4.9 g/dL (6.4-8.2) L 10/11/25 05:52 Albumin 1.9 g/dL (3.4-5.0) L 10/11/25 05:52 Globulin 3.0 g/dL (2.5-4.5) 10/11/25 05:52 Albumin/Globulin Ratio 0.6 Ratio (1.1-2.1) L 10/11/25 05:52 Vitamin B12 1870 pg/mL (193-986) H 10/04/25 12:20 Folate 7.1 ng/mL (>8.6) L 10/04/25 12:20 Specimen Type Random urine 10/03/25 18: Urine Color Pale yellow (YELLOW) 10/03/25 18: Urine Appearance Clear (CLEAR) 10/03/25 18: Urine pH 6.5 (5.0 - 8.0) 10/03/25 18: Ur Specific [place] 1.015 (1.000-1.030) 10/03/25 18: Urine Protein 1+ (NEGATIVE) 10/03/25 18:26 Urine Glucose (UA) Negative (NEGATIVE) 10/03/25 18: Urine Ketones Negative (NEGATIVE) 10/03/25 18: Urine Blood 4+ (NEGATIVE) 10/03/25 18: Urine Nitrite Negative (NEGATIVE) 10/03/25 18: Urine Bilirubin Negative (NEGATIVE) 10/03/25 18: Urine Urobilinogen Normal (NORMAL) 10/03/25 18: Ur Leukocyte Esterase 1+ (NEGATIVE) 10/03/25 18: Urine RBC 5-10 /HPF (0-3) A 10/03/25 18: Urine WBC 3-5 /HPF (0-5) 10/03/25 18: Ur Squamous Epith Cells Negative /HPF (NEGATIVE) 10/03/25 18: Urine Bacteria Trace /HPF (NEGATIVE) 10/03/25 18: Ur Culture Indicated? No/not indicated 10/03/25 18: Stl Occult Blood (IFOB) Positive (NEGATIVE) A 10/04/25 16:30 Random Vancomycin 19.0 ug/mL 10/05/25 21:42 Resp Viral Panel (PCR) See scanned report 10/04/25 16:51 Blood Type O NEGATIVE 10/03/25 17:24 Antibody Screen Negative 10/03/25 17:24 Crossmatch See Detail 10/03/25 17:24 Reason For Visit: SEPSIS, SEVERE ANEMIA, GI BLEED, HYPOKALEMIA Discharge Diagnosis All Active Problems (Updated 10/10/25 @ 11:43 by SHAE NGUYỄN MD) Preop cardiovascular exam (Acute) Low serum albumin (Acute) Pulmonary hypertension (Acute) Mass of colon (Acute) Pneumonia (Acute) Sacral ulcer (Chronic) Hypomagnesemia (Acute) Hypokalemia (Acute) GI bleed (Acute) Anemia (Acute) Sepsis (Acute) Acute hyponatremia (Acute) Acute hyperkalemia (Acute) Sepsis (Acute) Acute renal failure (Acute) Acute exacerbation of CHF (congestive heart failure) (Chronic) Hyperlipidemia (Chronic) Generalized weakness (Acute) Atrial fibrillation (Chronic) Influenza A (Acute) CHF (congestive heart failure) (Acute) Fracture, rib (Acute) Metabolic acidosis (Acute) Acute asthmatic bronchitis (Acute) Plan of Treatment: Continue with present treatment and follow up plan. Pt is to keep follow up appointment as instructed and take medications as ordered. Discharge Medications Discharge Medications: No Known Drug Allergies Allergy (Verified 10/03/25 16:26) CONTINUE taking the following medications apixaban 2.5 mg tablet (Eliquis) 2.5 mg PO BID 10/03/25 [History] atorvastatin 20 mg tablet 20 mg PO QDAY 10/03/25 [History] bumetanide 1 mg tablet 1 mg PO QDAY 10/03/25 [History] furosemide 40 mg tablet 40 mg PO QDAY 10/03/25 [History] pantoprazole 40 mg tablet,delayed release 40 mg PO BID 10/03/25 [History] spironolactone 25 mg tablet 25 mg PO QDAY 10/03/25 [History] sucralfate 1 gram tablet 1 g PO QID 10/03/25 [History] terbinafine HCl 250 mg tablet 250 mg PO QDAY 10/03/25 [History] New Prescriptions doxycycline hyclate 100 mg tablet 100 mg PO BID 10 days #20 tabs 10/11/25 [Rx] levofloxacin 500 mg tablet 500 mg PO QDAY 10 days #10 tabs 10/11/25 [Rx] risperidone 1 mg tablet 1 mg PO BID 30 days #60 tabs 10/11/25 [Rx] Discharge Disposition Discharge Disposition: home with home hospice Discharge Condition: stable Discharge Plan Discharge Plan Hospital Course: Patient is a 74-year-old male with a past medical history of CVA, atrial fibrillation, hypertension, hypothyroidism, anemia and limited mobility presented with worsening lower extremity edema and weakness. ER workup included labs which showed hemoglobin 5.3 potassium 3.2, elevated BNP, negative troponin. Chest x-ray and UA were negative. Patient had elevated lactic acid at 3.9. He was slightly hypotensive on admission. He was started on gentle hydration and IV antibiotics. He also has a sacral wound. Patient was admitted at [facility] in June for GI bleed and underwent further workup including EGD. He was found to have multiple ulcers with no active bleeding. He was supposed to be scheduled for colonoscopy outpatient but has not been able to do so. Family states patient is pretty much bedbound and requires assistance. He has been having dark tarry stools for a while. He takes Eliquis for atrial fibrillation and history of CVA. He received a total of 4 units of PRBCs to maintain his hemoglobin above 8. Surgery was consulted for anemia and sacral wound. He did undergo EGD which did not show any active bleeding. His labs are monitored daily and electrolytes replaced as needed. He was agitated and restless, pulling IV access. He was started on risperidone for behavioral management. He continued to receive wound care for sacral ulcer. He remained on IV antibiotics, adjusted based on cultures. He did undergo colonoscopy which showed mass in the ascending colon that was concerning for malignancy. Patient was severely hypotensive after the procedure and did require multiple pressor doses to maintain blood pressure. His blood pressure remained stable with fluids after the procedure. CT abdomen pelvis was also done which showed some lesions of the spleen colon mass concerning for malignancy. Cardiology was consulted for cardiac clearance for possible surgical removal of colon mass. Echo was done, see scanned results. Patient was noted to have wall motion abnormalities and severe pulmonary hypertension. Due to patient's cardiac history, and active lifestyle and other risk factors, patient was deemed high risk for surgical intervention. This was explained to the patient and family in detail. Family elected to decline surgery and go with hospice care. Patient was stable for discharge home on home hospice. He will be notified with biopsy results when available. Time spent for clinical assessment, reviewing labs/imaging, physical exam, decision making and documentation greater than 45 mins. Patient Disposition: 50 DISCHARGED TO HOSPICE -HOME Condition: Stable Health Concerns: Post Hospitalization: new medications and changes needed to prevent readmission or further decline. Pt educated and given instructions on all concerns. Care Plan Goals: Problem: Pain/Alteration in Comfort Goal: Improve/ Resolve Pain; Achieve Pain Tolerance Instructions: Take pain medications as prescribed. Contact your primary care provider if your pain is unrelieved or worsens. Follow up with primary care provider as directed. Plan of Treatment: Continue with present treatment and follow up plan. Pt is to keep follow up appointment as instructed and take medications as ordered. Prescription drug monitoring program results: PDMP reviewed and no concerns identified Prescriptions: New risperidone 1 mg Tablet 1 mg PO BID 30 Days Qty: 60 0RF levofloxacin 500 mg tablet 500 mg PO QDAY 10 Days Qty: 10 0RF doxycycline hyclate 100 mg tablet 100 mg PO BID 10 Days Qty: 20 0RF Continued metoprolol succinate 50 mg tablet extended release 24 hr 50 mg PO QDAY furosemide 40 mg tablet 40 mg PO QDAY atorvastatin 20 mg tablet 20 mg PO QDAY sucralfate 1 gram tablet 1 g PO QID Patient Comments: [NO ORIGINAL SIG] spironolactone 25 mg tablet 25 mg PO QDAY pantoprazole 40 mg tablet,delayed release (DR/EC) 40 mg PO BID bumetanide 1 mg tablet 1 mg PO QDAY Discontinued terbinafine HCl 250 mg tablet 250 mg PO QDAY Eliquis 2.5 mg tablet 2.5 mg PO BID Follow ups/Referrals Follow ups/Referrals: Yousif Rodriguez [Primary Care Provider, MEDICAL] - 3 days Instructions Instructions: Colonoscopy, Adult, Care After, [id number], Monitored Anesthesia Care, Care After Stand Alone Forms: Excuse From Work or School, Find Help Web Site, Post Hospital Follow Up Care Print Language: DANISH
== END 2025-10-11 20:00 | disposition hospice, home (50) | DRG 375 ==
LOC: MED/SURG 15:53 → ER 15:53 → MED/SURG 20:20
PROVIDERS: ADMIT Internal Medicine; ATTEND Internal Medicine
DX: I48.20 Chronic atrial fibrillation, unspecified; Z16.29 Resistance to other single specified antibiotic; K92.2 Gastrointestinal hemorrhage, unspecified; L89.611 Pressure ulcer of right heel, stage 1; B96.5 Pseudomonas (aeruginosa) (mallei) (pseudomallei) as the cause of diseases classified elsewhere; R45.6 Violent behavior; R77.0 Abnormality of albumin; K92.1 Melena; C18.2 Malignant neoplasm of ascending colon; D50.0 Iron deficiency anemia secondary to blood loss (chronic); Z01.810 Encounter for preprocedural cardiovascular examination; R06.02 Shortness of breath; S50.12XA Contusion of left forearm, initial encounter; Z79.01 Long term (current) use of anticoagulants; B96.4 Proteus (mirabilis) (morganii) as the cause of diseases classified elsewhere; B97.19 Other enterovirus as the cause of diseases classified elsewhere; I50.89 Other heart failure; E03.8 Other specified hypothyroidism; K21.9 Gastro-esophageal reflux disease without esophagitis; I11.0 Hypertensive heart disease with heart failure; E80.6 Other disorders of bilirubin metabolism; Z29.89 Encounter for other specified prophylactic measures; Z86.73 Personal history of transient ischemic attack (TIA), and cerebral infarction without residual deficits; R60.0 Localized edema; R26.89 Other abnormalities of gait and mobility; L89.621 Pressure ulcer of left heel, stage 1; R53.1 Weakness; R79.89 Other specified abnormal findings of blood chemistry; R94.31 Abnormal electrocardiogram [ECG] [EKG]; E83.42 Hypomagnesemia; I27.20 Pulmonary hypertension, unspecified; B97.89 Other viral agents as the cause of diseases classified elsewhere; B96.83 Acinetobacter baumannii as the cause of diseases classified elsewhere; E78.5 Hyperlipidemia, unspecified; L98.421 Non-pressure chronic ulcer of back limited to breakdown of skin; E83.51 Hypocalcemia